=== PATIENT | female | born 1940 | race Caucasian/White ===

== ENCOUNTER 2021-01-15 17:54 | Emergency (ER) | payer MEDICARE, SELFPAY ==
--- NOTE | ~2021-01-15 | CT_ITS ---
CT elbow LT wo con DATE: 01/15/2021 19:54 INDICATION: Fall. Left upper extremity injury, pain Equivocal left forearm and left elbow radiographs with respect to possible subtle radial neck fractur e TECHNIQUE: Axial images were obtained through the elbow region. Examination is limited due to motion and patient inability to tolerate optimal positioning. COMPARISON: None FINDINGS: The examination is limited and nondiagnostic due to motion. IMPRESSION: Very subtle virtually nondisplaced radial neck fracture is not definitively confirmed or excluded. Clinical correlation is advised. Consider treating this as likely subtle nondisplaced radial neck fra cture and obtaining follow-up radiographs in one to 2 weeks. Reviewed, dictated and finalized at [facility]. Reviewed, dictated and finalized at location [facility]. IMPRESSION: Very subtle virtually nondisplaced radial neck fracture is not defi nitively confirmed or excluded. Clinical correlation is advised. Consider treating this as likely subtle nondis placed radial neck fracture and obtaining follow-up radiographs in one to 2 wee rosa.
--- NOTE | ~2021-01-15 | XR_ITS ---
XR elbow LT min 3V DATE: 01/15/2021 19:03 INDICATION: Fall. Pain. Suspected radial neck fracture on plain radiographic evaluation of the forear m TECHNIQUE: 4 views COMPARISON: None FINDINGS: Subtle recent or old radial neck fracture not definitively excluded. Consider CT evaluation of the left elbow. IMPRESSION: Cannot definitively exclude a subtle radial neck fracture of uncertain age including poss ible recent subtle nondisplaced fracture. Consider CT evaluation if radial neck fracture is clinicall y suspected. Reviewed, dictated and finalized at location [facility]. IMPRESSION: Cannot definitively exclude a subtle radial neck fracture of uncert ain age including possible recent subtle nondisplaced fracture. Consider CT lindsey luation if radial neck fracture is clinically suspected.
--- NOTE | ~2021-01-15 | XR_ITS ---
XR forearm LT 2V DATE: 01/15/2021 18:36 INDICATION: Fall. Left forearm and hand injury, pain TECHNIQUE: AP and lateral views COMPARISON: None FINDINGS: A subtle linear lucency at the radial neck is noted anteriorly, suggesting possible subtle nondisplaced radial neck fracture. Minimal 4 view left elbow radiographic examination is recommended. Diffuse osteopenia. No other fracture or dislocation is evident. Normal alignment at the elbow and wr ist joints. IMPRESSION: Subtle linear lucency at anterior neck of radius; recommend 4 view left elbow radiographi c evaluation to evaluate for any possible subtle nondisplaced radial neck fracture Reviewed, dictated and finalized at location [facility]. IMPRESSION: Subtle linear lucency at anterior neck of radius; recommend 4 view left elbow radiographic evaluation to evaluate for any possible subtle nondispl aced radial neck fracture
--- NOTE | ~2021-01-15 | XR_ITS ---
XR hand LT min 3V DATE: 01/15/2021 18:36 INDICATION: Fall. Left hand injury, pain TECHNIQUE: 4 views COMPARISON: None FINDINGS: Diffuse osteopenia. Age-indeterminate approximately 2.5 mm proximally displaced avulsion fracture of the dorsal base of t he middle phalanx of the fourth digit, most likely old. Clinical correlation for point tenderness at this site is recommended. No other fracture or dislocation, periosteal reaction or bone destruction is detected. Osteoarthritic changes are noted at the interphalangeal joints primarily. No erosive change. IMPRESSION: Age indeterminate avulsion fracture of the dorsal aspect of the base of the middle phalan x of the fourth digit, most likely old Osteopenia Osteoarthritis No fracture or dislocation is detected Reviewed, dictated and finalized at location [facility]. IMPRESSION: Age indeterminate avulsion fracture of the dorsal aspect of the bas e of the middle phalanx of the fourth digit, most likely old Osteopenia Osteoarthritis No fracture or dislocation is detected
[2021-01-15 18:10] VITALS: BP 161/92; PULSE 59; RESP 18; TEMP 36.6; O2SAT 100
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
[2021-01-15] MEDS: HYDROmorphone HCL INJ (*CRX) 2 MG/ML VIAL 0.5 MG IM (20:26)
[2021-01-15 21:00] VITALS: RESP 14; O2SAT 100
--- NOTE | 2021-01-15 21:01 | PC.NURSE ---
LONG ARM ULNAR GUTTER OCL PLACED ON LEFT ARM WITH SLING
== END 2021-01-15 21:00 | disposition home or self-care (01) ==
PROVIDERS: Emergency Provider Emergency Medicine
DX: S52.125A Nondisplaced fracture of head of left radius, initial encounter for closed fracture (principal); E78.5 Hyperlipidemia, unspecified; I10 Essential (primary) hypertension; E03.9 Hypothyroidism, unspecified; Z85.3 Personal history of malignant neoplasm of breast; Z96.641 Presence of right artificial hip joint; Z90.12 Acquired absence of left breast and nipple; V00.841A Fall from standing electric scooter, initial encounter; Y92.89 Other specified places as the place of occurrence of the external cause
CPT/HCPCS: 29105; 73080; 73090; 73130; 73200; 96372; 99283; 99284; J1170

== ENCOUNTER 2022-07-10 08:58 | Emergency (ER) | payer MEDICARE, SELFPAY ==
[2022-07-10] VITALS (92 sets, daily range): BP systolic 96–154; BP diastolic 53–123; PULSE 60–70; RESP 9–29; TEMP 36.1; O2SAT 89–99
--- NOTE | ~2022-07-10 | CT_ITS ---
EXAMINATION: CTA brain carotid DATE: 07/10/2022 10:07 INDICATION: Right hemiparesis. TECHNIQUE: Computed tomographic angiography (CTA) of the head was performed with 100 mL Omnipaque-350 intravenous contrast. CTA of the neck was performed with intravenous contrast. Automated exposure co ntrol and iterative reconstruction technique were employed. The dose-length product was 1118.81 mGy-c m. Maximum intensity projection and volume rendered 3D-reconstructions were created by the technologi st on a separate workstation. COMPARISON: Head CT 07/10/2022 FINDINGS: HEAD CTA: There are scattered areas of low attenuation in the cerebral white matter. There is an old infarct in left frontoparietal region. There is an infarct in right temporal region. There is a 9 mm dural calcification overlying left frontal lobe. There are infarcts involving the left thalamus, left basal ganglia, and anterior limb left internal capsule. There is no acute ischemic infarct. The vent ricles are normal in size. There are likely changes of ocular lens replacement surgeries. There is mi ld mucosal thickening in the paranasal sinuses. The mastoid air cells are normal. The vertebral arter ies are codominant. There is no significant stenosis of basilar artery or the posterior cerebral tony ally. There is no significant stenosis of the intracranial internal carotid arteries or anterior or m iddle cerebral arteries. Anterior communicating artery is normal. The posterior communicating arterie s are normal. There is no aneurysm. NECK CTA: There are moderate-sized right and small left pleural effusions. There are a few scattered nodules in the lungs measuring up to 1.9 cm in right upper lobe. There is mild mediastinal lymphadeno semaj. There is no significant stenosis of the vertebral arteries. There is mild plaque in the proxim al internal carotid arteries. There is 0% stenosis of the proximal right internal carotid artery rela tive to normal distal artery lumen diameter (NASCET criteria). There is 0% stenosis of the proximal l eft internal carotid artery relative to normal distal artery lumen diameter. There is severe cervical and thoracic spondylosis. IMPRESSION: 1. Age-indeterminate infarct in right temporal occipital region. 2. Age-indeterminate infarcts involving the left thalamus, left basal ganglia, and anterior limb left internal capsule. 3. Old infarct in left frontoparietal region. 4. Extensive nonspecific cerebral white matter disease, which likely represents chronic small vessel ischemic disease. 5. No aneurysm or significant intracranial arterial stenosis. 6. 0% stenosis of the proximal internal carotid arteries relative to normal distal artery lumen diame ters (NASCET criteria). 7. Pulmonary nodules suspicious for metastatic disease. 8. Moderate-sized right and small left pleural effusions. Reviewed, dictated and finalized at location [facility]. IMPRESSION: 1. Age-indeterminate infarct in right temporal occipital region. 2. Age-indeterminate infarcts involving the left thalamus, left basal ganglia, and anterior limb left internal capsule. 3. Old infarct in left frontoparietal region. 4. Extensive nonspecific cerebral white matter disease, which likely represents chronic small vessel ischemic disease. 5. No aneurysm or significant intracranial arterial stenosis. 6. 0% stenosis of the proximal internal carotid arteries relative to normal dis marita artery lumen diameters (NASCET criteria). 7. Pulmonary nodules suspicious for metastatic disease. 8. Moderate-sized right and small left pleural effusions.
--- NOTE | ~2022-07-10 | CT_ITS ---
EXAMINATION: CT brain wo con DATE: 07/10/2022 09:06 INDICATION: Right hemiparesis. TECHNIQUE: Computed tomography (CT) of the head was performed without intravenous contrast. The mA wa s adjusted according to patient size. Iterative reconstruction technique was employed. The dose-lengt h product was 605.33 mGy-cm. COMPARISON: None FINDINGS: There are scattered areas of low attenuation in the cerebral white matter. There is an old infarct in left frontoparietal region. There is an infarct in right temporal region. There is a 9 mm dural calcification overlying left frontal lobe. There are infarcts involving the left thalamus, left basal ganglia, and anterior limb left internal capsule. There is no acute ischemic infarct. The vent ricles are normal in size. There are likely changes of ocular lens replacement surgeries. There is mi ld mucosal thickening in the paranasal sinuses. The mastoid air cells are normal. IMPRESSION: 1. Age-indeterminate infarct in right temporal occipital region. 2. Age-indeterminate infarcts involving the left thalamus, left basal ganglia, and anterior limb left internal capsule. 3. Old infarct in left frontoparietal region. 4. Extensive nonspecific cerebral white matter disease, which likely represents chronic small vessel ischemic disease. 5. I discussed this case with Dr. Neves. Reviewed, dictated and finalized at location A.
--- NOTE | 2022-07-10 09:00 | ECG_ITS ---
Measurements Intervals [place] Rate: 60 P: AL: 0 QRS: 259 QRSD: 148 T: 38 QT: 468 QTc: 468 Interpretive Statements ELECTRONIC VENTRICULAR PACEMAKER UNDERLYING ATRIAL FLUTTER/TACHYCARDIA BASELINE ARTIFACT- I, III, AVL, V5 NO FURTHER INTERPRETATION IS POSSIBLE ABNORMAL ECG NO PREVIOUS ECG AVAILABLE FOR COMPARISON Electronically Signed On 07-10-2022 12:13:12 CDT by Misbah Carson D.O.
[2022-07-10 09:12] LABS: Glucose Point of Care 217 mg/dl (65-105)
--- NOTE | 2022-07-10 09:20 | PC.NURSE ---
call placed to [facility]
[2022-07-10 09:28] LABS: Basophils Absolute Auto 0.05 K/mm3 (0.00-0.10); Basophils Percent Auto 0.4 % (0.0-1.0); Eosinophils Absolute Auto 0.28 K/mm3 (0.02-0.50); Eosinophils Percent Auto 2.5 % (1.0-6.0); Hematocrit 42.8 % (35.0-42.0); Hemoglobin 13.7 g/dL (11.7-13.8); Immature Granulocyte Absolute 0.06 K/mm3 (0.00-0.00); Immature Granulocyte Percent A 0.5 % (0.0-0.0); Lymphocytes Absolute Auto 0.94 K/mm3 (1.10-4.50); Lymphocytes Percent Auto 8.3 % (18.0-42.0); Mean Corpuscular Hemoglobin 32.9 pg (27.0-31.0); Mean Corpuscular Volume 102.9 fL (78.0-102.0); Mean Platelet Volume 10.7 fl (9.2-11.8); Monocytes Absolute Auto 0.81 K/mm3 (0.10-0.90); Monocytes Percent Auto 7.2 % (2.0-11.0); Neutrophils Absolute Auto 9.2 K/mm3 (1.7-7.2); Neutrophils Percent Auto 81.1 % (50.0-70.0); Platelet Count Result 179 K/mm3 (150-420); Red Blood Count 4.16 M/mm3 (4.20-5.40); Red Cell Distribution Width 13.6 % (11.6-14.4); White Blood Count 11.3 K/mm3 (4.8-10.8)
--- NOTE | 2022-07-10 09:32 | ED.NEUROSD ---
HPI - Neuro Symptoms/Deficit General Chief Complaint: Suspected CVA Stated Complaint: ambulance Time Seen by Provider: 07/10/22 09:00 Source: patient, family, EMS and RN notes reviewed Mode of arrival: EMS Limitations: no limitations History of Present Illness HPI Narrative: At 0715 pt told family she had lost right upper and lower limb movement. Please see nurses' and EMS notes. Onset (ago): hour(s) (2) Timing confirmed by: family member Location: right arm and right leg History of same: No Severity: moderate Quality: weak, tingling and constant Relieving factors: none Exacerbating factors: none Context: sudden onset On Anticoagulants: Yes Associated symptoms: weakness Treatments Prior to Arrival: none Related Data Home Medications Medication Instructions Recorded Confirmed amlodipine 10 mg tablet 10 mg PO DAILY 01/15/21 07/10/22 atenolol 50 mg tablet 50 mg PO TID 01/15/21 07/10/22 atorvastatin 40 mg tablet 40 mg PO DAILY 01/15/21 07/10/22 dabigatran etexilate 75 mg capsule 75 mg PO DAILY 01/15/21 07/10/22 (Pradaxa) irbesartan 300 mg tablet 300 mg PO HS 01/15/21 07/10/22 levothyroxine 137 mcg tablet 137 mcg PO DAILY 01/15/21 07/10/22 (Synthroid) spironolactone 25 mg tablet 25 mg PO DAILY 01/15/21 07/10/22 memantine 10 mg tablet 10 mg PO DAILY 07/10/22 07/10/22 Allergies Allergy/AdvReac Type Severity Reaction Status Date / Time No Known Allergies Allergy Unverified 07/10/22 09:40 Review of Systems Review of Systems: All systems reviewed & are unremarkable except as noted in HPI and below Constitutional: Constitutional: Reports no additional constitutional complaints Eyes: Eyes: Reports no additional eye complaints ENT: Reports system reviewed and no additional complaints, except as documented Cardiovascular: Cardiovascular: Reports no additional cardiovascular complaints Respiratory: Respiratory: Reports no additional respiratory complaints Gastrointestinal: Gastrointestinal: Reports no additional gastrointestinal complaints Genitourinary: Genitourinary: Reports no additional female genitourinary complaints Musculoskeletal: Musculoskeletal: Reports no additional musculoskeletal complaints Integumentary/Breasts: Skin/Breast: Reports system reviewed and no additional complaints, except as docu Neurologic: Reports system reviewed and no additional complaints, except as documented Comments: right upper and lower limb weakness. right certified nurse aide was maintained 3/5. right knee minimal flexion 2/5. pt was unable to lift either limb. otherwise non-focal Psychiatric: Psychiatric: Reports no additional psychiatric complaints Endocrine: Endocrine: Reports no additional endocrine complaints Hematologic/Lymphatic: Hematologic/Lymphatic: Reports no additional hematologic/lymphatic complaints Allergic/Immunologic: Allergic/Immunologic: Reports no additional allergic/immunologic complaints PMFSH Past Medical History Medical History (Updated 07/11/22 @ 07:27 by Pepe Neves MD) Breast cancer CVA (cerebrovascular accident) Hyperlipidemia Hypertension Hypothyroidism Surgical History Surgical History (Updated 01/15/21 @ 18:17 by Timmy Wills MD) H/O mastectomy left History of hip replacement right Social History Social History (Updated 01/15/21 @ 18:17 by Timmy Wills MD) Smoking status: Never smoker Alcohol intake: never Substance use: never Exam Const: General: cooperative, comfortable, no acute distress, alert and awake Nutritional Appearance: well nourished and obese Orientation/consciousness: oriented to person and patient oriented x3 Limitations: no limitations Other: pt has memory deficits. HENMT: Head: normal to inspection Ears: external ears normal, TM's normal bilaterally and EAC's normal General nose exam: Normal external nose present and Normal nares present Face and sinus: normal facial exam and sinuses nontender Mouth: Yes Normal oral and pa
--- NOTE | 2022-07-10 09:33 | PC.NURSE ---
[facility] returned call, speaking with erp at this time.
[2022-07-10 09:43] LABS: Prothrombin Time 10.8 Seconds (9.50-12.10)
[2022-07-10 09:45] LABS: Alanine Aminotransferase 8 U/L (14-59); Albumin Level 3.2 g/dL (3.4-5.0); Alkaline Phosphatase 120 U/L (46-116); Anion Gap 9 mmol/L (8-16); Aspartate Amino Transferase 11 U/L (15-37); Bilirubin,Total 0.5 mg/dL (0.00-1.00); Blood Urea Nitrogen 35 mg/dL (7-18); Calcium 9.2 mg/dL (8.5-10.1); Carbon Dioxide 23 mmol/L (21-32); Chloride 105 mmol/L (98-108); Estimated Glomerular Filt Rate 20; Glucose 207 mg/dL (70-99); Osmolality Calculated 298 mOsm/kg (285-295); Potassium 4.1 mmol/L (3.5-5.1); Sodium 137 mmol/L (136-145); Total Protein 7.4 g/dL (6.4-8.2); Troponin I 12.6 ng/L (0.00-60.4)
[2022-07-10 09:46] LABS: Lactic Acid Reflex 0.9 mmol/L (0.4-2.0)
[2022-07-10] MEDS: SODIUM CHLORIDE 0.9% IV 500 ML 999 ML IV CONT (10:00)
[2022-07-10] MEDS: ASPIRIN 325 MG ENTERIC TABLET PO (10:02)
--- NOTE | 2022-07-10 10:25 | PC.NURSE ---
[facility] access line contacted to speak with neuro again following up on CTA report.
--- NOTE | 2022-07-10 11:29 | PC.NURSE ---
rn called [facility] again states they have paged neuro and will page again.
--- NOTE | 2022-07-10 11:56 | PC.NURSE ---
rn spoke with [facility] access line, rapid covid ordered, will call back with hospitalist.
--- NOTE | 2022-07-10 12:51 | PC.NURSE ---
patient is accepted to [facility]. waiting on room assignment
[2022-07-10 13:41] LABS: SARS-CoV-2 Ag Negative (Negative)
--- NOTE | 2022-07-10 18:01 | PC.NURSE ---
rn spoke with [facility] transfer center, they state that discharges are happening right now and should hear something in the next couple hours.
--- NOTE | 2022-07-10 20:30 | PC.NURSE ---
called [facility] transfer center for update, pt still in line
--- NOTE | 2022-07-10 22:36 | PC.NURSE ---
pt moved to room 1 for comfort
--- NOTE | 2022-07-10 22:55 | PC.NURSE ---
again called for update, no new information
[2022-07-11] VITALS (109 sets, daily range): BP systolic 114–152; BP diastolic 60–97; PULSE 60–90; RESP 12–30; TEMP 36.6; O2SAT 90–99
--- NOTE | 2022-07-11 06:59 | PC.NURSE ---
report to izzy andino
--- NOTE | 2022-07-11 07:44 | ED.NEUROSD ---
HPI - Neuro Symptoms/Deficit General Chief Complaint: Suspected CVA Stated Complaint: ambulance Time Seen by Provider: 07/10/22 09:00 Source: patient, family, EMS and RN notes reviewed Mode of arrival: EMS Limitations: no limitations History of Present Illness Location: right arm and right leg History of same: No Severity: moderate Quality: weak, tingling and constant Relieving factors: none Exacerbating factors: none On Anticoagulants: Yes Treatments Prior to Arrival: none Related Data Home Medications Medication Instructions Recorded Confirmed amlodipine 10 mg tablet 10 mg PO DAILY 01/15/21 07/10/22 atenolol 50 mg tablet 50 mg PO TID 01/15/21 07/10/22 atorvastatin 40 mg tablet 40 mg PO DAILY 01/15/21 07/10/22 dabigatran etexilate 75 mg capsule 75 mg PO DAILY 01/15/21 07/10/22 (Pradaxa) irbesartan 300 mg tablet 300 mg PO HS 01/15/21 07/10/22 levothyroxine 137 mcg tablet 137 mcg PO DAILY 01/15/21 07/10/22 (Synthroid) spironolactone 25 mg tablet 25 mg PO DAILY 01/15/21 07/10/22 memantine 10 mg tablet 10 mg PO DAILY 07/10/22 07/10/22 Allergies Allergy/AdvReac Type Severity Reaction Status Date / Time No Known Allergies Allergy Unverified 07/10/22 09:40 [facility] Past Medical History Medical History (Updated 07/11/22 @ 07:27 by Pepe Neves MD) Breast cancer CVA (cerebrovascular accident) Hyperlipidemia Hypertension Hypothyroidism Surgical History Surgical History (Updated 01/15/21 @ 18:17 by Timmy Wills MD) H/O mastectomy left History of hip replacement right Social History Social History (Updated 01/15/21 @ 18:17 by Timmy Wills MD) Smoking status: Never smoker Alcohol intake: never Substance use: never Course Vital Signs Vital signs: Vital Signs Blood Pressure 148/82 H 07/10/22 08:58 Pulse Oximetry 92 07/10/22 08:58 Temperature 36.1 C L 07/10/22 09:28 Pulse Rate 60 07/11/22 06:30 Respiratory Rate 11 L 07/10/22 13:02 Blood Pressure 146/73 H 07/11/22 05:14 Pulse Oximetry 94 07/10/22 22:45 Oxygen Delivery Room Air 07/10/22 09:28 MDM - Neuro Symptoms/Deficit Lab Data Result diagrams: 07/10/22 09:00 07/10/22 09:00 Labs: Lab Results 07/10/22 07/10/22 07/10/22 Range/Units 09:00 09:00 09:00 WBC 11.3 H (4.8-10.8) K/mm3 RBC 4.16 L (4.20-5.40) M/mm3 Hgb 13.7 (11.7-13.8) g/dL Hct 42.8 H (35.0-42.0) % MCV 102.9 H (78.0-102.0) fL MCH 32.9 H (27.0-31.0) pg MCHC 32.0 (32.0-36.0) g/dL RDW 13.6 (11.6-14.4) % Plt Count 179 (150-420) K/mm3 MPV 10.7 (9.2-11.8) fl Immature Gran % (Auto) 0.5 H (0.0-0.0) % Neut % (Auto) 81.1 H (50.0-70.0) % Lymph % (Auto) 8.3 L (18.0-42.0) % [place] % (Auto) 7.2 (2.0-11.0) % Eos % (Auto) 2.5 (1.0-6.0) % Baso % (Auto) 0.4 (0.0-1.0) % Lymph # (Auto) 0.94 L (1.10-4.50) K/mm3 [place] # (Auto) 0.81 (0.10-0.90) K/mm3 Eos # (Auto) 0.28 (0.02-0.50) K/mm3 Baso # (Auto) 0.05 (0.00-0.10) K/mm3 Abs Immat Gran (auto) 0.06 H (0.00-0.00) K/mm3 Absolute Neuts (auto) 9.2 H (1.7-7.2) K/mm3 Absolute Nucleated RBC 0.00 (0.00-0.00) K/mm3 Nucleated RBC % 0.0 (0-0.0) % PT (9.50-12.10) Seconds INR APTT (23.90-30.70) SEC Sodium 137 (136-145) mmol/L Potassium 4.1 (3.5-5.1) mmol/L Chloride 105 (98-108) mmol/L Carbon Dioxide 23 (21-32) mmol/L Anion Gap 9 (8-16) mmol/L BUN 35 H (7-18) mg/dL Creatinine 2.31 H (0.55-1.02) mg/dL Estim Creat Clear Calc Not Reportable Estimated GFR 20 L (59 - ) Glucose 207 H (70-99) mg/dL POC Capillary Glucose (65-105) mg/dl Calculated Osmolality 298 H (285-295) mOsm/kg Lactic Acid 0.9 (0.4-2.0) mmol/L Calcium 9.2 (8.5-10.1) mg/dL Total Bilirubin 0.5 (0.00-1.00) mg/dL AST 11 L (15-37) U/L ALT 8 L (14-59) U/L Alkaline Phosphatase 120 H (46-116) U/L Troponin
[2022-07-11 07:45] LABS: Glucose Point of Care 164 mg/dl (65-105)
--- NOTE | 2022-07-11 07:55 | PC.NURSE ---
pt awake, conversing appropriately, pleasant and cooperative. Oriented to self, place, and year - not to month. Full linen change, incontinent of urine, repositioned. No complaints or distress, VSS. Awaiting morning medications to arrive from pharmacy. Blood sugar stable, call portillo within reach.
[2022-07-11] MEDS: ASPIRIN 81 MG ENTERIC TABLET PO (08:23)
[2022-07-11] MEDS: atenoloL 50 MG TABLET PO (08:24)
[2022-07-11] MEDS: LEVOTHYROXINE SODIUM 112 MCG, LEVOTHYROXINE SODIUM 25 MCG 137 MCG PO (08:25)
--- NOTE | 2022-07-11 08:27 | PC.NURSE ---
[address] [facility] LINE CALLS FOR UPDATE STATUS. [facility] HAS NO BEDS AVAILABLE AT THIS TIME, CURRENTLY HAS PTS IN ED AWAITING ADMISSION. [facility] REPORTS AWAITING DC, UNSURE IF PT WILL GET A BED DURING DAY SHIFT. ERP AWARE. [facility] [employer] MA[employer]GER DAMEON NOTIFIED FOR NEUROLOGY CONSULT AT THIS TIME. DR ROMERO TO RETURN CALL.
[2022-07-11] MEDS: MEMANTINE 5 MG TABLET 10 MG PO (08:34)
--- NOTE | 2022-07-11 08:52 | PC.NURSE ---
Called daughter in law, Suma, gave update on the patient. Currently attempting to get a bed at [facility], daughter in law aware and agreeable with plan of care.
--- NOTE | 2022-07-11 09:10 | PC.NURSE ---
DAMEON FROM [facility] CALLED, IS UNABLE TO REACH DR ROMERO AT THIS TIME, STATES SHE IS CONTINUING TO ATTEMPT CONTACT. PILLOW PLACED UNDER PT RT LEG FOR COMFORT.
--- NOTE | 2022-07-11 09:38 | PC.NURSE ---
Pt eating breakfast independently using left hand, no needs at this time.
--- NOTE | 2022-07-11 09:39 | PC.NURSE ---
0935 DR ROMERO RETURNED CALL AT 0920, ACCEPTED PT FOR TRANSFER TO [facility]. AWAITING RETURN CALL FROM DR CALIX AT THIS TIME. CORPORATE DEVELOPMENT ANALYST HAS PAGED HIM. WILL CONTINUE TO MONITOR.
--- NOTE | 2022-07-11 10:11 | PC.NURSE ---
DR CALIX HAS ACCEPTED PT, [employer] [facility] HE[employer] MANAGER REPORTS NO IMU BEDS AT THIS TIME. TO AWAIT DC FOR ROOM ASSIGNMENT.
--- NOTE | 2022-07-11 10:39 | PC.NURSE ---
Call received from Vamp Cut Out Worker at [place]. States she has spoke to accepting physician, Dr [facility], who confirmed he would like to admit this patient as IMU status. Currently working on getting a bed in [facility]'s IMU, no beds at this time.
--- NOTE | 2022-07-11 11:45 | PC.NURSE ---
Call received from Cable Lacer at [place], no IMU beds at this time. Will call when bed is available.
--- NOTE | 2022-07-11 14:09 | PC.NURSE ---
Spoke with daughter, confirmed past medical and home medications. No bed at this time, will call with update.
--- NOTE | 2022-07-11 15:30 | PC.NURSE ---
Pt transferred from Trauma stretcher to regular hospital bed for comfort, repositioned.
--- NOTE | 2022-07-11 16:12 | PC.NURSE ---
Received a call from [place] Suma Garcia, at [facility] ([phone]). States patient does have a bed (room 1408), accepting physician Dr Flynn. Called material handling warehouse supervisor at [facility] for update. States there are not any IMU beds at [place] at this time, patient is still on their radar for a bed, continually attempting placement. Called and spoke with patient's son and daughter in law. Informed there is a bed at [facility], bed at [facility] is not guaranteed at this time. Pt is currently stable, both facilities have services this patient needs. Transferred call into patient room so patient, son, and daughter in law could discuss options. Per son and daughter in law, all are in agreement to wait on bed at [facility], [place] at [place]. OK to cancel bed at [facility]. Aware there is not a guarantee for a bed at [facility]. Called Suma back at [facility] to cancel room 1408 for patient. Called material handling warehouse supervisor at [facility] to inform of family decision to wait on IMU bed at [facility], please continue to search for bed placement.
--- NOTE | 2022-07-11 18:10 | PC.NURSE ---
Right arm continues to be flaccid. Arm sling applied for comfort at the request of family at bedside.
--- NOTE | 2022-07-11 20:59 | PC.NURSE ---
Called house sup at [facility] for bed update, she stated ER took last 3 beds but she was still working on it
--- NOTE | 2022-07-11 22:03 | PC.NURSE ---
[facility] w[facility] sup called and states no imu bed will be available bunny darling
[2022-07-12] VITALS (73 sets, daily range): BP systolic 113–142; BP diastolic 59–77; PULSE 60–73; RESP 12–31; TEMP 36.1–36.2; O2SAT 90–99
--- NOTE | 2022-07-12 06:59 | PC.NURSE ---
Report to Madonna RAMOS
--- NOTE | 2022-07-12 07:30 | PC.NURSE ---
Full linen change, incontinent of urine. Brushed teeth, brushed hair. ordered breakfast. pt stable, pleasant and cooperative this morning. Call light within reach.
--- NOTE | 2022-07-12 07:41 | PC.NURSE ---
Sp[facility] with house [facility] at [facility]. States patient is still slotted for IMU bed at this time, continuing to attempt bed placement.
--- NOTE | 2022-07-12 08:06 | PC.NURSE ---
Called pharmacy for AM meds
[2022-07-12] MEDS: LEVOTHYROXINE SODIUM 112 MCG, LEVOTHYROXINE SODIUM 25 MCG 137 MCG PO (08:23)
[2022-07-12] MEDS: DABIGATRAN ETEXILATE 75 MG CAPSULE PO (08:24)
[2022-07-12] MEDS: MEMANTINE 5 MG TABLET 10 MG PO (08:24)
[2022-07-12] MEDS: ATORVASTATIN 40 MG TABLET PO (08:25)
--- NOTE | 2022-07-12 09:08 | PC.NURSE ---
Spoke with son, Kyle, gave update on patient this morning. Aware we are still looking for a bed.
--- NOTE | 2022-07-12 10:52 | PC.NURSE ---
Spoke with house parent, Divine, at [place] again. Patient is stable, improvement in stroke scale today. Asking if patient could be downgraded to med/surg tele as IMU beds are still not available. cage/vault supervisor to speak with accepting physician.
[2022-07-12] MEDS: EMPAGLIFLOZIN 10 MG TABLET 25 MG PO (11:05)
[2022-07-12 11:06] LABS: Glucose Point of Care 281 mg/dl (65-105)
--- NOTE | 2022-07-12 11:12 | PC.NURSE ---
Bedside glucose 281. pt restarted on Farxiga substitute per pharmacy. 25 mg Jardiance administered. Pt repositioned, remains pleasant, cooperative, stable. no complaints of pain. Stroke scale improved since yesterday.
--- NOTE | 2022-07-12 11:21 | PC.NURSE ---
Case management at bedside with patient.
--- NOTE | 2022-07-12 11:35 | PCCCNOTE ---
Spoke to pt about the plan to transfer her to [place], still waiting on a bed. Encouraged her and let her know feeling down and to cry was okay and normal with a health change that has happened to her. She did tear up during conversation at times. Informed her the importance of seeing neurology and cardiology and then starting therapy to try and regain function of her right arm and leg. She lives at home alone with her dog. Her step-son lives near by, he is disabled but is a help to her. She had been driving prior to this stroke. She has a stair lift at home and did help cleaning her home. Discussed rehab options including [facility] and our swing bed program.
--- NOTE | 2022-07-12 11:59 | PC.NURSE ---
Patient's high school guidance counselor at bedside visiting with patient.
--- NOTE | 2022-07-12 12:17 | PC.NURSE ---
Spoke with NAJMA Boggs, at [facility]. Gave update on patient. Flakita approved medsurg with tele, will alert housekeeping lead.
--- NOTE | 2022-07-12 12:19 | PC.NURSE ---
Received call from house manager at [facility]. pt approved for downgrade to med/surg tele. WILL have a bed today, okay to inform family. Currently working on bed placement.
--- NOTE | 2022-07-12 12:44 | PC.NURSE ---
Called son with update, patient will have bed at [facility] today.
--- NOTE | 2022-07-12 14:12 | PC.NURSE ---
Pt has bed at [facility], room 254. MALICK Moise aware, verbal consent obtained for transfer. [facility] paged at this time.
--- NOTE | 2022-07-12 14:52 | PC.NURSE ---
Spoke with MALICK Moise. Aware patient is with EMS on her way to [facility]
--- NOTE | 2022-07-12 14:55 | PC.NURSE ---
Spoke with Danyell, receiving RN at [facility]. Aware patient did NOT receive her aspirin dose, aware of sling use for right arm for comfort at the request of family. Danyell aware patient is currently with EMS on her way to [place].
== END 2022-07-12 14:50 | disposition short-term general hospital (02) ==
PROVIDERS: Emergency Medicine; Emergency Provider Emergency Medicine; PCP Internal Medicine
DX: I63.9 Cerebral infarction, unspecified (principal); Z20.822 Contact with and (suspected) exposure to COVID-19; E78.5 Hyperlipidemia, unspecified; I10 Essential (primary) hypertension; E03.9 Hypothyroidism, unspecified; Z85.3 Personal history of malignant neoplasm of breast
CPT/HCPCS: 36415; 70450; 70496; 70498; 80053; 82948; 83605; 84484; 85025; 85610; 85730; 87426; 93005; 96360; 99285; A4565; A9270; C9803; J7040; Q9967

== ENCOUNTER 2022-07-12 15:30 | Inpatient (IN) | payer MEDICARE, SELFPAY ==
--- NOTE | ~2022-07-12 | XR_ITS ---
EXAMINATION: [id number] DATE: 07/14/2022 10:22 INDICATION: Right pleural effusion status post thoracentesis. TECHNIQUE: Frontal and lateral views of the chest were obtained. COMPARISON: Chest CT 07/13/2022 FINDINGS: There are scattered nodules in the lungs. There is mild atelectasis in left lower lung zone . There is a small right pleural effusion. No pneumothorax. The heart size is normal. There is a left chest pacer with leads in right atrium, right ventricle, and coronary sinus. Surgical clips overlie the abdomen. IMPRESSION: 1. Small right pleural effusion with improvement status post thoracentesis. 2. Mild atelectasis in left lower lung zone. 3. Pulmonary nodules, consistent with metastatic disease. Reviewed, dictated and finalized at location A.
--- NOTE | ~2022-07-12 | US_ITS ---
EXAMINATION: US carotid duplex BI DATE: 07/13/2022 10:19 INDICATION: Stroke with right-sided hemiparesis. TECHNIQUE: Grayscale, color Doppler, and pulsed Doppler images of the cervical carotid arteries were obtained. The degree of vessel stenosis is placed in one of the following categories: normal, <50%, 5 0-69%, >=70% but less than near-occlusion, near-occlusion, or total occlusion. Note that percent sten osis relative to normal distal artery lumen diameter is indirectly measured from velocity measurement s as described by Kaden, et al. Radiology 2003; 229:340-346. COMPARISON: None. FINDINGS: RIGHT: The right common carotid artery (CCA) peak systolic velocity (PSV) is 47 cm/s. The right internal car otid artery (ICA) PSV is 44 cm/s. The right ICA end-diastolic velocity (EDV) is 9 cm/s. The right ICA /CCA PSV ratio is 0.9. Grayscale and color Doppler images yield an estimate of <50% diameter reductio n from minimal plaque in the ICA. The external carotid artery (ECA) PSV is 71 cm/s. There is antegrad e flow in the right vertebral artery. LEFT: The left CCA PSV is 53 cm/s. The left ICA PSV is 51 cm/s. The left ICA EDV is 13 cm/s. The left ICA/C CA PSV ratio is 1.0. Grayscale and color Doppler images yield an estimate of <50% diameter reduction from minimal plaque in the ICA. The ECA PSV is 53 cm/s. There is antegrade flow in the left vertebral artery. IMPRESSION: 1. <50% stenosis from minimal plaque in the right internal carotid artery. 2. <50% stenosis from minimal plaque in the left internal carotid artery. Reviewed, dictated and finalized at location A.
--- NOTE | ~2022-07-12 | US_ITS ---
EXAMINATION: US thoracentesis DATE: 07/14/2022 10:56 INDICATION: Right pleural effusion. TECHNIQUE: The procedure and its risks, benefits, and alternatives were discussed with the patient an griffin Suma Sands. Potential risks discussed included bleeding, infection, and pneumothorax. The patient and Suma Sands understood the risks and agreed to proceed. The skin was prepped and draped in steril e fashion. 1% lidocaine was used for local anesthesia. Under ultrasound guidance, a 5 Fr catheter wit trochar was advanced into the right pleural effusion. Fluid was aspirated. The catheter was removed , and a dressing was applied. There were no immediate complications. FINDINGS: Ultrasound images demonstrate a right pleural effusion and the catheter within the fluid. IMPRESSION: 1. Successful ultrasound-guided thoracentesis yielding 650 mL of clear, sheldon-colored fluid. Reviewed, dictated and finalized at location A. IMPRESSION: 1. Successful ultrasound-guided thoracentesis yielding 650 mL of clear, sheldon- colored fluid.
--- NOTE | ~2022-07-12 | US_ITS ---
EXAMINATION: US retroperitoneal duplex ltd DATE: 07/13/2022 10:20 INDICATION: Chronic renal failure TECHNIQUE: Multiple grayscale, color Doppler, and pulsed Doppler images of the kidneys and renal tony ally were obtained. COMPARISON: None. FINDINGS: The right kidney measures 9.1 x 4.4 x 5.5 cm and the left 10.8 x 5.0 x 5.6 cm. There is bilateral inc reased renal cortical echogenicity which can be seen with medical renal disease. 1.4 cm anechoic left renal cyst. There is no hydronephrosis. The aorta peak systolic velocity is 70 cm/s. The right evan al artery peak systolic velocity is 76 cm/s in the proximal segment, 83 cm/s in the mid segment, and 72 cm/s in the distal segment. The left renal artery peak systolic velocity is 78 cm/s in the proxima l segment, 54 cm/s in the mid segment, and 72 cm/s in the distal segment. IMPRESSION: 1. No hydroureteronephrosis or Doppler evidence of renal artery stenosis. 2. Bilateral increased renal cortical echogenicity which can be seen with medical renal disease. Reviewed, dictated and finalized at location A. IMPRESSION: 1. No hydroureteronephrosis or Doppler evidence of renal artery stenosis. 2. Bilateral increased renal cortical echogenicity which can be seen with medic al renal disease.
--- NOTE | ~2022-07-12 | US_ITS ---
US renal BI 07/17/2022 09:45 Procedure: Realtime transabdominal ultrasound of the kidneys and bladder. Indication: Elevated creatinine Comparison: No prior studies for comparison. Findings: Renal echotexture is normal bilaterally without hydronephrosis, contour deforming mass or r enal calculus. The right kidney measures 8.7 cm and left kidney measures 8.3 cm. Bladder within norm al limits. Impression: 1: Unremarkable renal ultrasound. No stones, masses or hydronephrosis. Reviewed, dictated and finalized at location A. Impression: 1: Unremarkable renal ultrasound. No stones, masses or hydronephrosis.
--- NOTE | ~2022-07-12 | US_ITS ---
EXAMINATION:US venous doppler LE BI INDICATION:Leg edema TECHNIQUE: Multiple grayscale, color flow and Doppler images of the right and left lower extremity de ep venous systems were obtained and reviewed. COMPARISON:No prior studies for comparison. FINDINGS: The common femoral, superficial femoral and popliteal veins demonstrate normal respiratory variation, augmentation and compressibility. Color flow is also seen within the posterior tibial, pe roneal, greater saphenous and profunda veins. IMPRESSION: 1: No lower extremity deep venous thrombosis. Reviewed, dictated and finalized at location A.
--- NOTE | ~2022-07-12 | CT_ITS ---
EXAMINATION: CT chest abdomen pelvis wo con DATE: 07/13/2022 09:23 INDICATION: Breast cancer. TECHNIQUE: Computed tomography (CT) of the chest, abdomen, and pelvis was performed without intraveno us contrast. Automated exposure control and iterative reconstruction technique were employed. The dos e-length product was 752.31 mGy-cm. COMPARISON: None FINDINGS: CHEST CT: There is a moderate-sized right pleural effusion. The lungs demonstrate smooth septal thickening, con sistent mild pulmonary edema. There are at least 5 scattered nodules in the lungs measuring up to 2.0 cm in left lower lobe. Cardiomegaly is noted. There are coronary artery calcifications. No pericardi al effusion. There is a left chest pacer with leads in right atrium, right ventricle, and coronary si nus. There are changes of right mastectomy. There is scarring in right chest with 0.2 x 1.9 x 4.3 cm thick-walled fluid collection. There is severe thoracic spondylosis. There are bridging endplate oste ophytes at multiple levels in the spine, consistent with diffuse idiopathic skeletal hyperostosis (DI SH). ABDOMEN/PELVIS CT: The liver, spleen, pancreas, and right adrenal gland are normal. There is a 15 mm mass in left adrena l gland measuring low-attenuation, consistent with an adenoma. There are cysts in right kidney measur ing up to 19 mm. There is cortical thinning of the kidneys. Stool distends the rectum. There is diver ticulosis of the colon without evidence of diverticulitis. The appendix is normal. There are no patho logically enlarged lymph nodes. There is no free intraperitoneal fluid. There is a right hip arthropl asty. There is severe lumbar spondylosis. IMPRESSION: 1. Pulmonary nodules, consistent metastatic disease. 2. Mild pulmonary edema. 3. Moderate-sized right pleural effusion. 4. Right-sided mastectomy with thin, thick-walled fluid collection in the area of prior surgery, whic h may be a seroma. Abscess cannot be excluded. Reviewed, dictated and finalized at location A. IMPRESSION: 1. Pulmonary nodules, consistent metastatic disease. 2. Mild pulmonary edema. 3. Moderate-sized right pleural effusion. 4. Right-sided mastectomy with thin, thick-walled fluid collection in the area of prior surgery, which may be a seroma. Abscess cannot be excluded.
[2022-07-12 16:13] VITALS: BMI 29.2
[2022-07-12 16:18] VITALS: PULSE 60
--- NOTE | 2022-07-12 16:21 | ADMGEN ---
This patient, Clemencia Sands, was admitted to Medical Room 254-01. Patient/family oriented to hospital policies and general routines including ID bracelet, bed and alarms, visiting hours, pain management, procedures, bathroom and other care routines, personal items, smoking policy, room service/diet, and visiting hours. Information on how to activate the Rapid Response Team has been discussed. Patient/Family are encouraged to report perceived risks to care and to ask questions if they do not understand what they are told or what they should do.
--- NOTE | 2022-07-12 16:46 | ECG_ITS ---
Measurements Intervals [place] Rate: 60 P: ID: 0 QRS: 251 QRSD: 161 T: -33 QT: 493 QTc: 493 Interpretive Statements ELECTRONIC VENTRICULAR PACEMAKER UNDERLYING ATRIAL FLUTTER/TACHYCARDIA BASELINE ARTIFACT- I, II, III, AVL, AVF, V1-V6 NO FURTHER INTERPRETATION IS POSSIBLE ABNORMAL ECG COMPARED TO ECG 07/10/2022 09:05:21 NO SIGNIFICANT CHANGES Electronically Signed On 07-12-2022 21:32:40 CDT by Misbah Carson D.O.
[2022-07-12 16:47] VITALS: BP 135/67; PULSE 60; RESP 22; TEMP 36.6; O2SAT 95
[2022-07-12 17:40] LABS: Lactic Acid Reflex 0.9 mmol/L (0.7-2.0)
[2022-07-12 17:44] LABS: Anion Gap 10 mmol/L (8-16); Blood Urea Nitrogen 33 mg/dL (7-17); Calcium 9.1 mg/dL (8.4-10.2); Carbon Dioxide 20 mmol/L (22-30); Chloride 108 mmol/L (98-107); Estimated CRCL calculation 22 ml/min; Estimated Glomerular Filt Rate 25; Glucose 236 mg/dL (65-110); Phosphorus 4.5 mg/dL (2.5-4.5); Potassium 4.2 mmol/L (3.4-5.0); Sodium 138 mmol/L (137-145)
[2022-07-12 17:58] LABS: Glucose Point of Care 230 mg/dl (65-105)
[2022-07-12] MEDS: ACETAMINOPHEN 325 MG TABLET 650 MG PO (18:38)
[2022-07-12 20:00] VITALS: PULSE 60
--- NOTE | 2022-07-12 20:23 | PM.IMHP ---
H&P: HPI History of Present Illness Date/Time: 07/12/22 20:23 Chief Complaint: Stroke-like symptoms Narrative: This is an 82-year-old female patient who was a direct admit from [facility]. The patient has had previous CVAs. She stated that she lost use of her right upper and lower extremity this was noted on the when she came into the emergency room at [facility]. The patient has a history of atrial fib/a flutter it is on anticoagulation and was not a candidate for tPA. Also the patient's symptoms started 12 hours prior to her coming to the emergency room. Head and neck CTA was read as the following 1. Age-indeterminate infarct in right temporal occipital region. 2. Age-indeterminate infarcts involving the left thalamus, left basal ganglia, and anterior limb left internal capsule. 3. Old infarct in left frontoparietal region. 4. Extensive nonspecific cerebral white matter disease, which likely represents chronic small vessel ischemic disease. 5. No aneurysm or significant intracranial arterial stenosis. 6. 0% stenosis of the proximal internal carotid arteries relative to normal distal artery lumen diameters (NASCET criteria). 7. Pulmonary nodules suspicious for metastatic disease. 8. Moderate-sized right and small left pleural effusions. The patient is unable to receive an MRI due to a pacemaker. The patient has been on Pradaxa for her AFib a flutter. I repeated an EKG here and she shows the paced beats with underlying atrial flutter with 4-1. The patient has a history of dementia and has a poor short-term memory. Her son and [id number] are at the bedside answering questions for me. The patient is unable to move the right leg for me and is not able to lift her right arm up but can grab my hand with her fingers and wiggle her fingers without difficulty. The patient's speech is clear. She can shrug the left shoulder but not the right shoulder. Her NIH SS score is a 10. Her blood sugars have been anywhere from 164-230. Her hemoglobin A1c is now 8.0. Her BUN is 33 with a creatinine 1.9.is being admitted to observation status on the date of service of 07/12/2022. Review of Systems Review of Systems: See HPI All systems reviewed & are unremarkable except as noted in HPI and below Constitutional: Constitutional: Reports as per HPI and Reports no additional constitutional complaints Eyes: Eyes: Reports as per HPI and Reports no additional eye complaints ENT: Reports system reviewed and no additional complaints, except as documented and Reports Normal hearing present Cardiovascular: Cardiovascular: Reports no additional cardiovascular complaints Respiratory: Respiratory: Reports no additional respiratory complaints and Reports no additional respiratory complaints Gastrointestinal: Gastrointestinal: Reports as per HPI and Reports no additional gastrointestinal complaints Musculoskeletal: Musculoskeletal: Reports no additional musculoskeletal complaints Integumentary/Breasts: Skin/Breast: Reports system reviewed and no additional complaints, except as docu and Reports as per HPI Neurologic: Reports system reviewed and no additional complaints, except as documented, Reports as per HPI and Reports Normal hearing present Psychiatric: Psychiatric: Reports no additional psychiatric complaints and Reports as per HPI Endocrine: Endocrine: Reports no additional endocrine complaints Hematologic/Lymphatic: Hematologic/Lymphatic: Reports no additional hematologic/lymphatic complaints Allergic/Immunologic: Allergic/Immunologic: Reports no additional allergic/immunologic complaints [facility] Past Medical History Medical History (Updated 07/12/22 @ 20:44 by Flakita Mason NP) Atrial fibrillation and flutter Breast cancer Chronic kidney disease CVA (cerebrovascular accident) Dementia DM2 (diabetes mellitus, type 2) Hyperlipidemia Hypertension Hypothyroidism Pacemaker Surgical History Surgical History (Reviewed 0
[2022-07-12 21:44] LABS: Glucose Point of Care 249 mg/dl (65-105)
[2022-07-12] MEDS: IRBESARTAN 150 MG TABLET 300 MG PO (22:11)
[2022-07-12 22:45] VITALS: BP 129/68; PULSE 60; RESP 20; TEMP 36.1; O2SAT 98
[2022-07-13] VITALS (11 sets, daily range): BP systolic 118–125; BP diastolic 66–71; PULSE 59–68; RESP 18; TEMP 36.1–36.7; O2SAT 95–97
--- NOTE | 2022-07-13 | ECHO_ITS ---
Patient Info Name: Clemencia Sands Age: 82 years : 1940 Gender: Female Ht: 66 in Wt: 181 lbs BSA: 1.98 m2 HR: 60 bpm BP: 129 / 68 mmHg Technical Quality: Fair Exam Date: 07/13/2022 10:55 AM Exam Location: [facility] Patient Status: Inpatient Admit Date: 07/13/2022 Staff Ordering Physician: Flakita Mason NP Threading Machine Operator: Melody Mayer RDCS Attending Provider: Nathaniel [facility] MD Referring Physician: Isabella ANGEL; Exam Type: CA echo doppler w bubble study Study Info Indications - CVA Complete two-dimensional, color flow and Doppler transthoracic echocardiogram is performed with agitated saline. Contrast/Agitated Saline Contrast/Ag. Saline: Agitated Saline Amount: 20.00 ml Administered By: Bia Bertrand RDCS New IV Access: Left and Antecubital Space Site Condition: No extravasation Summary 1. Left ventricular chamber dimension is normal. 2. Left ventricular systolic function is normal, estimated at 60-65%. 3. The left ventricular diastolic function is abnormal. 4. E/e' 13 is mildly elevated. 5. Left atrial chamber dimension is mildly enlarged. 6. The mitral valve has moderately calcified annulus. 7. No pulmonary hypertension, estimated pulmonary arterial systolic pressure is 38 mmHg. 8. There is trace pulmonic regurgitation. Left Ventricle E/e' 13 is mildly elevated. Left ventricular chamber dimension is normal. Left ventricular systolic function is normal, estimated at 60-65%. The left ventricular diastolic function is abnormal. Right Ventricle Right ventricular chamber dimension is normal. Right ventricular systolic function is normal. Left Atria Left atrial chamber dimension is mildly enlarged. Right Atria Right atrial chamber dimension is normal. Atrial Septum Agitated saline injection with and without valsalva maneuver opacified right sided cardiac chambers without shunt to left sided cardiac chambers. Intact interatrial septum visualized by 2D and agitated saline imaging. Aortic Valve The aortic valve is trileaflet. There is no aortic valve stenosis. There is no aortic valve regurgitation. Pulmonic Valve There is trace pulmonic regurgitation. Mitral Valve The mitral valve has moderately calcified annulus. There is no mitral valve stenosis. There is no mitral valve regurgitation. Tricuspid Valve There is no tricuspid valve regurgitation. No pulmonary hypertension, estimated pulmonary arterial systolic pressure is 38 mmHg. Pericardium/Pleural There is no pericardial effusion. Inferior Vena Cava Normal inferior vena cava with >50% collapse upon inspiration consistent with normal right atrial pressure, 5 mmHg. Aorta The aortic root size at the sinus of Valsalva is normal. Left Ventricular Outflow Tract Name Value Normal LVOT 2D LVOT Diameter 1.9 cm LVOT Doppler LVOT Peak Gradient 2 mmHg LVOT Mean Gradient 1 mmHg LVOT VTI 15 cm LVOT VTI/AV VTI Ratio 0.8
[2022-07-13 03:34] LABS: Appearance Urine Clear (Clear); Bilirubin Urine Negative (Negative); Blood Urine 1+ (Negative); Color Urine Yellow (Yellow); Glucose Urine UA 2+ mg/dL (Negative); Ketones Urine Negative (Negative); Leukocyte Esterase Ur Negative LEU/UL (Negative); Nitrate Urine Negative (Negative); Protein Urine Negative (Negative); Urobilinogen Urine 0.2 mg/dL (<2.0); pH Urine 6.5 (5.0-9.0)
[2022-07-13 03:44] LABS: Add Urine Microscopic? YES; RBC Urine 21-50 /hpf (0-2); Squamous Epithelial Cell Urine Moderate /hpf (Few)
[2022-07-13] MEDS: LEVOTHYROXINE SODIUM 25 MCG TABLET PO (05:26)
[2022-07-13] MEDS: LEVOTHYROXINE SODIUM 112 MCG TABLET PO (05:26)
[2022-07-13 06:10] LABS: Basophils Percent Auto 0.3 % (0.2-1.2); Eosinophils Absolute Auto 0.2 K/mm3 (0-0.3); Eosinophils Percent Auto 2.6 % (0-4.4); Hematocrit 42.3 % (37.0-47.0); Hemoglobin 13.5 g/dL (12.0-15.0); Immature Granulocyte Absolute 0.03 K/mm3 (0.00-0.031); Immature Granulocyte Percent A 0.3 % (0-0.5); Lymphocytes Absolute Auto 1.09 K/mm3 (0.9-3.2); Lymphocytes Percent Auto 12.1 % (18.3-44.2); Mean Corpuscular HGB Conc 31.9 g/dl (32-36); Mean Corpuscular Hemoglobin 31.9 pg (26-34); Monocytes Absolute Auto 0.8 K/mm3 (0.1-0.6); Monocytes Percent Auto 8.4 % (2.6-8.5); Neutrophils Absolute Auto 6.9 K/mm3 (1.3-6.7); Neutrophils Percent Auto 76.3 % (45.5-73.1); Platelet Count Result 220 k/mm3 (150-375); Red Blood Count 4.23 M/mm3 (4.2-5.4); Red Cell Distribution Width 13.6 % (11.5-14.5)
[2022-07-13 06:23] LABS: Lactic Acid Reflex 0.9 mmol/L (0.7-2.0)
[2022-07-13 06:28] LABS: Alanine Aminotransferase 14 U/L (6-35); Albumin Level 3.4 g/dL (3.5-5.1); Alkaline Phosphatase 117 U/L (38-126); Anion Gap 11 mmol/L (8-16); Aspartate Amino Transferase 17 U/L (14-36); Bilirubin,Total 0.6 mg/dL (0.2-1.3); Blood Urea Nitrogen 32 mg/dL (7-17); CRP 1.2 mg/dL (<1.0); Calcium 9.2 mg/dL (8.4-10.2); Carbon Dioxide 21 mmol/L (22-30); Chloride 109 mmol/L (98-107); Estimated CRCL calculation 21 ml/min; Estimated Glomerular Filt Rate 24; Glucose 193 mg/dL (65-110); Lactate Dehydrogenase 168 U/L (120-246); Magnesium 1.9 mg/dL (1.6-2.3); Potassium 4.1 mmol/L (3.4-5.0); Sodium 141 mmol/L (137-145)
[2022-07-13 06:43] LABS: Cholesterol 142 mg/dL (0-200); HDL Direct 28 mg/dL; Triglycerides 175 mg/dL (<150)
[2022-07-13 06:54] LABS: LDL Cholesterol Direct 82 mg/dL
[2022-07-13 07:16] LABS: Thyroid Stimulating Hormone Reflex 0.265 uIU/mL (0.465-4.68)
[2022-07-13 08:19] LABS: Glucose Point of Care 184 mg/dl (65-105)
--- NOTE | 2022-07-13 08:22 | PCPTNOTE ---
Attempted PT evaluation. Per RN, patient leaving floor for testing. Will Follow.
[2022-07-13] MEDS: ASPIRIN 81 MG ENTERIC TABLET PO (10:33)
[2022-07-13] MEDS: amLODIPine BESYLATE 5 MG TABLET 10 MG PO (10:33)
[2022-07-13] MEDS: ATORVASTATIN 40 MG TABLET PO (10:34)
[2022-07-13] MEDS: atenoloL 50 MG TABLET PO ×2 (10:34→20:43)
[2022-07-13] MEDS: DABIGATRAN ETEXILATE 75 MG CAPSULE PO (10:34)
[2022-07-13] MEDS: EMPAGLIFLOZIN 25 MG TABLET PO (10:36)
[2022-07-13] MEDS: MEMANTINE 10 MG TABLET PO (10:36)
[2022-07-13] MEDS: MUPIROCIN 2% OINT 22 GM TUBE 1 APPLIC TOPICAL (10:37)
--- NOTE | 2022-07-13 11:15 | PM.IMPN ---
Progress Note: A&P Assessment and Plan (1) CVA (cerebrovascular accident): Code(s): I63.9 - Cerebral infarction, unspecified Status: Inactive Assessment and Plan: -Head ct infarct in the right temporal occipital region, left thalamus, basal ganglia, and limb internal capsule -Head/neck CTA right temporal occipital region, left thalamus, basal ganglia, and limb internal capsule, old infarct in the left frontoparietal region, 0% stenosis of the intracranial carotid arteries -daily aspirin, continue atorvastatin, increase to 80 mg PO daily -neurology consult was greatly be appreciated. -PT OT evaluation would greatly be appreciated. -care coordination consult for placement for rehab, [address] [place] [address] rehab -unable to receive a MRI, pacemaker -echo pending -carotid Doppler <50% stenosis bilaterally -Currently on Pradaxa -NIH 13 (2) Lung nodules: Code(s): R91.8 - Other nonspecific abnormal finding of lung field Status: Acute Assessment and Plan: -CT of the chest abdomen pelvis shows primary metastatic disease -history of breast cancer -CT of the chest 1st to further investigate the lung nodules. -Consider biopsy -moderate pleural effusion on the right noted on the Head CTA -Consider oncology and pulmonology for support (3) Wound abscess: Status: Acute Assessment and Plan: -wound care consult. -Consider wound culture -history of breast cancer -CT of the chest showed an abscess -General surgery consult (4) DM2 (diabetes mellitus, type 2): Code(s): E11.9 - Type 2 diabetes mellitus without complications Status: Acute Assessment and Plan: -current glucose 193 -A1c 8.0 -Accu-Cheks AC and HS. -sliding scale insulin -Hypoglycemia protocol -Trend glucose -adjust therapy if indicated (5) Chronic kidney disease: Code(s): N18.9 - Chronic kidney disease, unspecified Status: Acute Assessment and Plan: -Current BUN/Cr is 32/2.00 -Unknown baseline however, appears to be around 2.00 -Urine studies ordered -hold nephrotoxic medicine -renal ultrasound showed no hydronephrosis or stenosis, increased renal cortical echogenicity which can be seen with medical renal disease -Stable (6) Dementia: Code(s): F03.90 - Unspecified dementia without behavioral disturbance Status: Acute Assessment and Plan: -patient has very poor short-term memory -continue with Namenda (7) Atrial fibrillation and flutter: Code(s): I48.91 - Unspecified atrial fibrillation; I48.92 - Unspecified atrial flutter Status: Acute Assessment and Plan: -pacemaker present -Rate is stable -Continue atenolol -Pradaxa on hold for possible need of thoracentesis -Continue aspirin (8) Hypothyroidism: Code(s): E03.9 - Hypothyroidism, unspecified Status: Acute Assessment and Plan: -Thyroid level 0.265 -continue with Synthroid (9) Hyperlipidemia: Code(s): E78.5 - Hyperlipidemia, unspecified Status: Acute Assessment and Plan: -lipid panel cholesterol 142, Triglycerides 175, LDL 82, HDL 28 -Currently on atorvastatin at 40mg PO daily, probably need to increase to 80mg -Diet changes (10) Hypertension: Code(s): I10 - Essential (primary) hypertension Status: Acute Assessment and Plan: -Current BP is 125/71 -continue with atenolol, irbesartan and amlodipine -hold Aldactone (11) Pleural effusion: Code(s): J90 - Pleural effusion, not elsewhere classified Status: Acute Assessment and Plan: -moderate right and small left pleural effusion noted on the Head/Neck CT -thoracentesis ordered -CT of the chest/abd/pel confirmed moderate right pleural effusion -BNP ordered -Could be from CHF -await further findings Time Spent With Patient Time with patient: Greater
[2022-07-13 11:37] LABS: Free T4 Free Thyroxine Reflex 2.39 ng/dL (0.78-2.19)
[2022-07-13 12:32] LABS: Glucose Point of Care 171 mg/dl (65-105)
--- NOTE | 2022-07-13 13:47 | WPDNEURCNPN ---
Assessment and Plan Assessment and plan (1) DM2 (diabetes mellitus, type 2): Code(s): E11.9 - Type 2 diabetes mellitus without complications Status: Acute (2) Chronic kidney disease: Code(s): N18.9 - Chronic kidney disease, unspecified Status: Acute (3) Dementia: Code(s): F03.90 - Unspecified dementia without behavioral disturbance Status: Acute (4) Atrial fibrillation and flutter: Code(s): I48.91 - Unspecified atrial fibrillation; I48.92 - Unspecified atrial flutter Status: Acute (5) Pacemaker: Code(s): Z95.0 - Presence of cardiac pacemaker Status: Acute (6) Stroke: Code(s): I63.9 - Cerebral infarction, unspecified Status: Acute Plan bihemispheric disease with flaccid right ani plegia will benefit from the rehab in addition to evaluation for other medical problems Consult date: 07/13/22 Time Seen: 13:00 Reason for consult: 82 years old lady has been admitted to the hospital through the emergency room with the ongoing history of 1. Dementia 2. Hypertension 3. Diabetes mellitus 4. Dyslipidemia 5. History of carcinoma of the breast 6. Atrial fibrillation for which patient is on Pradaxa 7. Status post right hip replacement and 8. Chronic kidney disease patient came to the emergency room for the complaints of right-sided weakness initial CT scan of the head in the emergency room revealed left frontoparietal infarct in addition to indeterminate age infarct the left basal ganglia thalamus and anterior limb of the internal capsule and right temporal region CTA of the head and neck was done in the emergency room which was without any significant stenosis she was found to have the 5 score of 10 with flaccid weakness of the right upper and right lower extremity in addition to dysarthria and dysphagia and was transferred to the [facility] for further care from the primary Hospital Emergency room in [facility], the routine blood studies are normal, initial CT scan as mentioned above revealed the infarct the right temporal occipital region in addition to the left thalamic left basal gangliar and left anterior limb capsule infarction as well addition to the old infarct in left frontoparietal region and extensive non specific white matter disease. Ultrasound of retroperitoneal space revealed no hydronephrosis or evidence of renal artery stenosis, treated Doppler studies less than 50% stenosis bilaterally, head neck CTA documented all the infarctions as mentioned above but no aneurysm or significant stenosis of the extra or intracranial arteries there was a pulmonary nodule of suspicion or nature and moderate size right left small pleural effusion Review of Systems Review of Systems: All systems reviewed & are unremarkable except as noted in HPI and below [facility] Past Medical History Medical History (Updated 07/13/22 @ 14:00 by Marvel Kraus MD) Atrial fibrillation and flutter Breast cancer Chronic kidney disease CVA (cerebrovascular accident) Dementia DM2 (diabetes mellitus, type 2) Hyperlipidemia Hypertension Hypothyroidism Pacemaker Surgical History Surgical History H/O mastectomy Right History of hip replacement right Family History Family History Father Heart disease Hypertension Mother Heart disease Hypertension Social History Social History (Updated 07/12/22 @ 20:33 by Flakita Mason NP) Social History: she is . She has 1 son and the [id number] is the durable power associate attorney for healthcare. The patient is a full code. She is retired. She has never smoked use any alcohol or marijuana or illicit drugs. Code status full code Smoking status: Never smoker Alcohol intake: never Substance use: never Spiritual care concerns: No Meds Home Medications and Allergies Home Medications Medicatio
[2022-07-13 15:33] LABS: Amylase 56 U/L (30-110)
[2022-07-13 15:34] LABS: Lactate Dehydrogenase 179 U/L (120-246); Triglycerides 165 mg/dL (<150)
[2022-07-13 15:43] LABS: NT Pro B Type Natriuretic Pept 3990 pg/mL (5-100)
--- NOTE | 2022-07-13 16:09 | PM.CNGS ---
Assessment and Plan Assessment and plan (1) Wound abscess: Status: Acute Assessment and Plan: The patient has a superficial superficial skin breakdown along the right lateral chest wall where her right upper arm has been densely or tightly pressed against her chest wall. It appears that this is in the general area of the lateral edge of her old mastectomy scar. There is no surrounding erythema the normal skin there is no significant tenderness or easily palpable underlying mass. There is some generalized thickening or scarring in the area. For now I would recommend continuing the topical antifungal and antibiotic ointments in the area covering the wound such that is padded between the chest and the skin of the arm and serial observations. (2) Pleural effusion: Code(s): J90 - Pleural effusion, not elsewhere classified Status: Acute (3) Stroke: Code(s): I63.9 - Cerebral infarction, unspecified Status: Acute Assessment and Plan: Age indeterminate. This is still being worked up. (4) Lung nodules: Code(s): R91.8 - Other nonspecific abnormal finding of lung field Status: Acute Assessment and Plan: These are new findings on today's CT scan. Unfortunately this could be metastatic liver lesions associated with her prior breast cancer. Agree with consideration for CT-guided biopsy if anticoagulation can be safely stopped and the family wishes to proceed. Should the biopsy reveal evidence of metastatic breast cancer 1 needs to consider whether not the thickening in the lateral portion of her right mastectomy scar may be also a recurrence. (5) DM2 (diabetes mellitus, type 2): Code(s): E11.9 - Type 2 diabetes mellitus without complications Status: Acute (6) Chronic kidney disease: Code(s): N18.9 - Chronic kidney disease, unspecified Status: Acute (7) Dementia: Code(s): F03.90 - Unspecified dementia without behavioral disturbance Status: Acute (8) Atrial fibrillation and flutter: Code(s): I48.91 - Unspecified atrial fibrillation; I48.92 - Unspecified atrial flutter Status: Acute (9) Pacemaker: Code(s): Z95.0 - Presence of cardiac pacemaker Status: Acute (10) Hypertension: Code(s): I10 - Essential (primary) hypertension Status: Acute History of Present Illness Consult details Consult date: 07/13/22 Reason for consult: other (Seroma versus abscess right chest wall) Requesting physician: Ortiz Prakash, HEALTHCARE ADMINISTRATOR-C Narrative: this patient is a pleasant but somewhat demented 82-year-old white female who was recently admitted to [place] with suspicion of a recent CVA. Today is CT scan of the abdomen chest and pelvis (CTA ) was ordered an incidentally a fluid collection was seen in the subcutaneous space on the right chest laterally. The radiologist read that this could be either seroma from previous surgery or possibly an abscess. The report states that it is both thin and thick walled. Patient's nurse reports that over that area there is a open wound that they had called the wound care nurses about. This is the side on which her stroke has affected her body and her right arm was tightly compressed against her right chest when I entered the room and we had to move it in order to see the area. The patient is alert and awake and tries to answer questions. She however could not remember how long ago she had her mastectomy or her breast cancer and also could not remember what treatment she had. She stated that she had completed treatment thus far she knew. She also stated that she had not had any specific problems with swelling in her right arm after her surgery. Nurses to run do not report any fever or other changes suggestive of infection for the patient at this time. Review of Systems Review of Systems: ROS unobtainable: Yes unobtainable due to mental status PMFSH Past Medical History Medical Histo
[2022-07-13 16:58] LABS: INR 1.2; Prothrombin Time 14.4 Seconds (11.1-14.7)
[2022-07-13 17:26] LABS: Glucose Point of Care 198 mg/dl (65-105)
[2022-07-13] MEDS: IRBESARTAN 150 MG TABLET 300 MG PO (20:43)
[2022-07-13 20:47] LABS: Glucose Point of Care 231 mg/dl (65-105)
[2022-07-14] VITALS (13 sets, daily range): BP systolic 107–131; BP diastolic 58–72; PULSE 59–97; RESP 15–17; TEMP 36.7–37.1; O2SAT 92–99
[2022-07-14 03:41] LABS: Creatinine Urine 80.4 mg/dL; Urea Random Urine 499 MG/DL
[2022-07-14 03:49] LABS: Sodium Urine Random 94 meq/L
[2022-07-14] MEDS: LEVOTHYROXINE SODIUM 25 MCG TABLET PO (05:40)
[2022-07-14] MEDS: LEVOTHYROXINE SODIUM 112 MCG TABLET PO (05:40)
[2022-07-14 05:54] LABS: Basophils Absolute Auto 0.1 K/mm3 (0.0-0.1); Basophils Percent Auto 0.6 % (0.2-1.2); Eosinophils Absolute Auto 0.3 K/mm3 (0-0.3); Eosinophils Percent Auto 2.8 % (0-4.4); Hematocrit 40.1 % (37.0-47.0); Hemoglobin 12.9 g/dL (12.0-15.0); Immature Granulocyte Absolute 0.16 K/mm3 (0.00-0.031); Immature Granulocyte Percent A 1.8 % (0-0.5); Lymphocytes Percent Auto 13.2 % (18.3-44.2); Mean Corpuscular HGB Conc 32.2 g/dl (32-36); Mean Corpuscular Hemoglobin 32.5 pg (26-34); Mean Platelet Volume 10.4 fl (7.4-10.4); Monocytes Absolute Auto 0.8 K/mm3 (0.1-0.6); Monocytes Percent Auto 8.3 % (2.6-8.5); Neutrophils Absolute Auto 6.7 K/mm3 (1.3-6.7); Neutrophils Percent Auto 73.3 % (45.5-73.1); Platelet Count Result 229 k/mm3 (150-375); Red Blood Count 3.97 M/mm3 (4.2-5.4); Red Cell Distribution Width 13.6 % (11.5-14.5); White Blood Count 9.1 K/mm3 (4.5-10.0)
[2022-07-14 06:09] LABS: Alanine Aminotransferase 13 U/L (6-35); Albumin Level 3.2 g/dL (3.5-5.1); Alkaline Phosphatase 94 U/L (38-126); Anion Gap 13 mmol/L (8-16); Aspartate Amino Transferase 17 U/L (14-36); Bilirubin,Total 0.5 mg/dL (0.2-1.3); Blood Urea Nitrogen 36 mg/dL (7-17); Calcium 8.5 mg/dL (8.4-10.2); Carbon Dioxide 21 mmol/L (22-30); Chloride 107 mmol/L (98-107); Estimated CRCL calculation 20 ml/min; Estimated Glomerular Filt Rate 22; Glucose 184 mg/dL (65-110); Magnesium 1.9 mg/dL (1.6-2.3); Sodium 141 mmol/L (137-145)
[2022-07-14] MEDS: amLODIPine BESYLATE 5 MG TABLET 10 MG PO (08:20)
[2022-07-14] MEDS: MEMANTINE 10 MG TABLET PO (08:21)
[2022-07-14] MEDS: ATORVASTATIN 40 MG TABLET 80 MG PO (08:21)
[2022-07-14] MEDS: ASPIRIN 81 MG ENTERIC TABLET PO (08:21)
[2022-07-14] MEDS: FUROSEMIDE INJ 40 MG/4 ML VIAL IV PUSH ×2 (08:21→17:38)
[2022-07-14] MEDS: atenoloL 50 MG TABLET PO ×2 (08:21→20:23)
[2022-07-14] MEDS: EMPAGLIFLOZIN 25 MG TABLET PO (08:21)
[2022-07-14 08:49] LABS: Glucose Point of Care 162 mg/dl (65-105)
[2022-07-14 11:45] LABS: Pleural fluid source Pleural fluid
--- NOTE | 2022-07-14 11:45 | PM.IMPN ---
Progress Note: A&P Assessment and Plan (1) CVA (cerebrovascular accident): Code(s): I63.9 - Cerebral infarction, unspecified Status: Inactive Assessment and Plan: -Head ct infarct in the right temporal occipital region, left thalamus, basal ganglia, and limb internal capsule -Head/neck CTA right temporal occipital region, left thalamus, basal ganglia, and limb internal capsule, old infarct in the left frontoparietal region, 0% stenosis of the intracranial carotid arteries -daily aspirin, continue atorvastatin, increase to 80 mg PO daily -neurology consult was greatly be appreciated. -PT OT evaluation would greatly be appreciated. -care coordination consult for placement for rehab, [address] [place] [address] rehab -unable to receive a MRI, pacemaker -echo pending -carotid Doppler <50% stenosis bilaterally -Currently on Pradaxa, which is on hold for procedures -NIH 13 (2) Lung nodules: Code(s): R91.8 - Other nonspecific abnormal finding of lung field Status: Acute Assessment and Plan: -CT of the chest abdomen pelvis shows primary metastatic disease -history of breast cancer -CT of the chest 1st to further investigate the lung nodules. -biopsy ordered however will have to wait for some of the labs from the thoracentsis -moderate pleural effusion on the right noted on the Head CTA -Consider oncology and pulmonology for support (3) Congestive heart failure: Code(s): I50.9 - Heart failure, unspecified Status: Acute Assessment and Plan: Chest CTA shows pleural effusion and mild pulmonary edema BNP 3990 Probably an acute exacerbation of chronic diastolic heart failure Echo pending Lasix 40mg IV BID for now Trend renal function as she already has CKD thoracentesis 650ml off daily weights Trend urine output Adjust therapy accordingly (4) Pleural effusion: Code(s): J90 - Pleural effusion, not elsewhere classified Status: Acute Assessment and Plan: -moderate right and small left pleural effusion noted on the Head/Neck CT -thoracentesis 650ml of of clear sheldon colored fluid -labs are pending -CT of the chest/abd/pel confirmed moderate right pleural effusion -BNP 3990 -Could be from CHF -await further findings (5) Wound abscess: Status: Acute Assessment and Plan: -wound care consult. -Consider wound culture -history of breast cancer -CT of the chest showed an abscess -General surgery consult -Does not appear to be big enough for intervention -might be related to metastatic disease (6) DM2 (diabetes mellitus, type 2): Code(s): E11.9 - Type 2 diabetes mellitus without complications Status: Acute Assessment and Plan: -current glucose 184 -A1c 8.0 -Accu-Cheks AC and HS. -sliding scale insulin -Hypoglycemia protocol -Trend glucose -adjust therapy if indicated (7) Chronic kidney disease: Code(s): N18.9 - Chronic kidney disease, unspecified Status: Acute Assessment and Plan: -Current BUN/Cr is 36/2.10 -Unknown baseline however, appears to be around 2.00 -Urine studies: Sodium 94, urea 499, creatinine 80.4 -FEUrea since patient has been on spironolactone, FEUrea is 36.2 suggesting intrinsic disease -hold nephrotoxic medicine -renal ultrasound showed no hydronephrosis or stenosis, increased renal cortical echogenicity which can be seen with medical renal disease -Stable (8) Dementia: Code(s): F03.90 - Unspecified dementia without behavioral disturbance Status: Acute Assessment and Plan: -patient has very poor short-term memory -continue with Namenda (9) Atrial fibrillation and flutter: Code(s): I48.91 - Unspecified atrial fibrillation; I48.92 - Unspecified atrial flutter Status: Acute Assessment and Plan: -pacemaker present -Rate is stable -Continue atenolol -Pradaxa on ho
[2022-07-14 11:46] LABS: Appearance Pleural Fluid Cloudy (Clear); Color Pleural Fluid Yellow (Colorless); Nucleated Cell Pleural Fluid 1485 /uL (0-1000)
[2022-07-14 11:47] LABS: RBC Pleural Fluid 2439 /uL (0-0)
[2022-07-14 11:48] LABS: Lymphocytes Pleural Fluid 60 %; Macrophages Pleural Fluid 3 %; Mesothelial Cells Pleural Flui 33 %; Neutrophils Pleural Fluid 4 % (0-25)
[2022-07-14 11:56] LABS: pH Pleural Fluid 7.428 (7.210-7.500)
[2022-07-14 12:17] LABS: Glucose Point of Care 168 mg/dl (65-105)
[2022-07-14] MEDS: MUPIROCIN 2% OINT 22 GM TUBE 1 APPLIC TOPICAL (12:17)
--- NOTE | 2022-07-14 13:50 | PM.PNGS ---
Progress Note: A&P Assessment and Plan (1) Wound abscess: Status: Acute Assessment and Plan: -wound care consult. - wound culture probably will not helped much since it is superficial not not does not appear to be severely infected -history of breast cancer -CT of the chest showed an abscess versus seroma related to her previous mastectomy however her mastectomy is in the distant past and I suspect that perhaps this was fibrotic thickened scar of the lateral portion of her right mastectomy scar. - Since her white count is normal and there is no fluctuance in the area I do not believe any surgical intervention is required. - One thing we have to keep in mind is possible chest wall recurrence of her previous right breast cancer whichmight be related to the probable metastatic disease noted on her chest CT which reflected right pleural effusion and pulmonary nodules on the right. (2) Lung nodules: Code(s): R91.8 - Other nonspecific abnormal finding of lung field Status: Acute Assessment and Plan: -CT of the chest abdomen pelvis shows possible metastatic disease (Right pleural effusion and pulmonary nodules on the right). -history of breast cancer -CT guided core or fine-needle biopsy ordered however will have to wait for some of the labs from the thoracentsis -moderate pleural effusion on the right noted on the the above CT and patient underwent ultrasound-guided thoracentesis on Saturday 07/14. Studies pending. -Consider oncology and pulmonology Consultation for support (3) Pleural effusion: Code(s): J90 - Pleural effusion, not elsewhere classified Status: Acute Assessment and Plan: -moderate right and small left pleural effusion noted on the Head/Neck CT -thoracentesis 650ml of of clear sheldon colored fluid -labs are pending -CT of the chest/abd/pel confirmed moderate right pleural effusion -BNP 3990 -Could be from CHF -await further findings (4) Dementia: Code(s): F03.90 - Unspecified dementia without behavioral disturbance Status: Acute Assessment and Plan: -patient has very poor short-term memory -continue with Namenda (5) Atrial fibrillation and flutter: Code(s): I48.91 - Unspecified atrial fibrillation; I48.92 - Unspecified atrial flutter Status: Acute Assessment and Plan: -pacemaker present -Continue atenolol -Pradaxa on hold for possible need of Right lung biopsy -Continue aspirin Subjective Subjective Date/Time Seen: 07/14/22 12:50 patient denies any changes in or any pain on the right lateral chest. She remembers that she had a mastectomy but cannot tell us what your was done. She remembers that she had both surgery and radiation treatments to the right chest. Review of Systems Review of Systems: ROS unobtainable: Yes unobtainable due to mental status Exam Chest: Breast/axilla inspection: abnormal inspection of the breast right lower outer scar ( Significant thickening of the lateral portion of her old mastectomy scar on the right lateral chest) Other: Careful evaluation at dressing change with patient's nurse this date reveals the open area described previously which is about 3 cm in length transversely and only about 0.5 cm in width vertically. This is superficial breakdown. There is no surrounding erythema no underlying palpable fluctuance. The lateral part of her right mastectomy scar is very thick and there were several deep crevices which juncture are difficult for the patient to keep clean. Dressing was reapplied by the nurse. Although this appears to be thickened scar related to her previous surgery and radiation recurrence of breast cancer in the chest wall in this area cannot be ruled out completely. Resp: Effort & Inspection: normal respiratory effort Objective Data Vital Signs Vital Signs: Vital Signs - 24 hr 07/13/22 16:00 07/13/22 20
[2022-07-14 17:24] LABS: Glucose Point of Care 257 mg/dl (65-105)
[2022-07-14] MEDS: INSULIN ASPART (*BKC) 100 UNITS/ML SUB-Q (17:37)
[2022-07-14] MEDS: IRBESARTAN 150 MG TABLET 300 MG PO (20:22)
[2022-07-14 21:29] LABS: Glucose Point of Care 274 mg/dl (65-105)
[2022-07-15] VITALS (9 sets, daily range): BP systolic 100–126; BP diastolic 54–60; PULSE 59–79; RESP 16–18; TEMP 36.6–36.9; O2SAT 97–98
[2022-07-15 05:29] LABS: Basophils Absolute Auto 0.1 K/mm3 (0.0-0.1); Basophils Percent Auto 0.5 % (0.2-1.2); Eosinophils Absolute Auto 0.2 K/mm3 (0-0.3); Eosinophils Percent Auto 1.7 % (0-4.4); Hematocrit 43.1 % (37.0-47.0); Immature Granulocyte Absolute 0.04 K/mm3 (0.00-0.031); Immature Granulocyte Percent A 0.4 % (0-0.5); Lymphocytes Absolute Auto 1.15 K/mm3 (0.9-3.2); Lymphocytes Percent Auto 10.7 % (18.3-44.2); Mean Corpuscular HGB Conc 32.5 g/dl (32-36); Mean Corpuscular Hemoglobin 32.4 pg (26-34); Mean Corpuscular Volume 99.8 fl (80-100); Mean Platelet Volume 10.2 fl (7.4-10.4); Monocytes Absolute Auto 0.9 K/mm3 (0.1-0.6); Monocytes Percent Auto 8.6 % (2.6-8.5); Neutrophils Absolute Auto 8.4 K/mm3 (1.3-6.7); Neutrophils Percent Auto 78.1 % (45.5-73.1); Platelet Count Result 235 k/mm3 (150-375); Red Blood Count 4.32 M/mm3 (4.2-5.4); Red Cell Distribution Width 13.5 % (11.5-14.5); White Blood Count 10.8 K/mm3 (4.5-10.0)
[2022-07-15 05:42] LABS: Alanine Aminotransferase 14 U/L (6-35); Albumin Level 3.6 g/dL (3.5-5.1); Alkaline Phosphatase 104 U/L (38-126); Anion Gap 17 mmol/L (8-16); Aspartate Amino Transferase 19 U/L (14-36); Bilirubin,Total 0.4 mg/dL (0.2-1.3); Blood Urea Nitrogen 46 mg/dL (7-17); Calcium 8.8 mg/dL (8.4-10.2); Carbon Dioxide 20 mmol/L (22-30); Chloride 103 mmol/L (98-107); Estimated CRCL calculation 18 ml/min; Estimated Glomerular Filt Rate 20; Glucose 207 mg/dL (65-110); Potassium 3.6 mmol/L (3.4-5.0); Sodium 140 mmol/L (137-145)
[2022-07-15] MEDS: LEVOTHYROXINE SODIUM 25 MCG TABLET PO (05:48)
[2022-07-15] MEDS: LEVOTHYROXINE SODIUM 112 MCG TABLET PO (05:48)
[2022-07-15 08:56] LABS: Glucose Point of Care 217 mg/dl (65-105)
[2022-07-15] MEDS: INSULIN ASPART (*BKC) 100 UNITS/ML SUB-Q ×3 (09:18→17:17)
[2022-07-15] MEDS: ASPIRIN 81 MG ENTERIC TABLET PO (09:21)
[2022-07-15] MEDS: EMPAGLIFLOZIN 25 MG TABLET PO (09:21)
[2022-07-15] MEDS: amLODIPine BESYLATE 5 MG TABLET 10 MG PO (09:21)
[2022-07-15] MEDS: ATORVASTATIN 40 MG TABLET 80 MG PO (09:21)
[2022-07-15] MEDS: MEMANTINE 10 MG TABLET PO (09:22)
[2022-07-15] MEDS: atenoloL 50 MG TABLET PO ×2 (09:25→21:14)
[2022-07-15] MEDS: FUROSEMIDE INJ 40 MG/4 ML VIAL IV PUSH (09:26)
[2022-07-15] MEDS: DABIGATRAN ETEXILATE 75 MG CAPSULE PO (09:26)
--- NOTE | 2022-07-15 09:45 | PM.IMPN ---
Progress Note: A&P Assessment and Plan (1) CVA (cerebrovascular accident): Code(s): I63.9 - Cerebral infarction, unspecified Status: Inactive Assessment and Plan: -Head ct infarct in the right temporal occipital region, left thalamus, basal ganglia, and limb internal capsule -Head/neck CTA right temporal occipital region, left thalamus, basal ganglia, and limb internal capsule, old infarct in the left frontoparietal region, 0% stenosis of the intracranial carotid arteries -daily aspirin, continue atorvastatin, increase to 80 mg PO daily -neurology consult was greatly be appreciated. -PT OT evaluation would greatly be appreciated. -care coordination consult for placement for rehab, [address] [place] [address] rehab -unable to receive a MRI, pacemaker -echo EF of 60-65% with abnormal diastolic dysfunction -carotid Doppler <50% stenosis bilaterally -Restart Pradaxa, since Biopsy cannot be performed at this time -Has been able to get into chair with Melissa Steady, can tolerate standing (2) Lung nodules: Code(s): R91.8 - Other nonspecific abnormal finding of lung field Status: Acute Assessment and Plan: -CT of the chest abdomen pelvis shows primary metastatic disease -history of breast cancer -CT of the chest 1st to further investigate the lung nodules. -biopsy ordered however will have to wait for some of the labs from the thoracentesis -moderate pleural effusion on the right noted on the Head CTA -Consider oncology and pulmonology for support (3) Congestive heart failure: Code(s): I50.9 - Heart failure, unspecified Status: Acute Assessment and Plan: Chest CTA shows pleural effusion and mild pulmonary edema BNP 3990 Probably an acute exacerbation of chronic diastolic heart failure Echo EF of 60-65% with abnormal diastolic dysfunction Lasix 40mg IV, changed to daily for now, with worsening renal function Trend renal function as she already has CKD thoracentesis 650ml off daily weights Trend urine output Adjust therapy accordingly (4) Pleural effusion: Code(s): J90 - Pleural effusion, not elsewhere classified Status: Acute Assessment and Plan: -moderate right and small left pleural effusion noted on the Head/Neck CT -thoracentesis 650ml of of clear sheldon colored fluid -labs pH 7.428, RBC 2439, Nuc cells 1485, seems stable -Gram stain: many WBC -CT of the chest/abd/pel confirmed moderate right pleural effusion -BNP 3990 -Could be from CHF -await further findings (5) Wound abscess: Status: Acute Assessment and Plan: -wound care consult. -Consider wound culture -history of breast cancer -CT of the chest showed an abscess -General surgery consult -Does not appear to be big enough for intervention -might be related to metastatic disease (6) DM2 (diabetes mellitus, type 2): Code(s): E11.9 - Type 2 diabetes mellitus without complications Status: Acute Assessment and Plan: -current glucose 207 -A1c 8.0 -Accu-Cheks AC and HS. -sliding scale insulin -Hypoglycemia protocol -Trend glucose -adjust therapy if indicated (7) Chronic kidney disease: Code(s): N18.9 - Chronic kidney disease, unspecified Status: Acute Assessment and Plan: -Current BUN/Cr is 46/2.30, continues to trend up -Unknown baseline however, appears to be around 2.00 -Urine studies: Sodium 94, urea 499, creatinine 80.4 -FEUrea since patient has been on spironolactone, FEUrea is 36.2 suggesting intrinsic disease -Decrease lasix to Daily for now -renal ultrasound showed no hydronephrosis or stenosis, increased renal cortical echogenicity which can be seen with medical renal disease -Continue to trend labs and adjust therapy accordingly (8) Dementia: Code(s): F03.90 - Unspecified dementia without behavioral disturbance Status: Acute Assessment an
[2022-07-15] MEDS: MUPIROCIN 2% OINT 22 GM TUBE 1 APPLIC TOPICAL (10:28)
[2022-07-15 12:25] LABS: Glucose Point of Care 307 mg/dl (65-105)
--- NOTE | 2022-07-15 13:06 | PM.PNGS ---
Progress Note: A&P Assessment and Plan (1) Wound abscess: Status: Acute Assessment and Plan: -wound care consult. - wound culture probably will not helped much since it is superficial not not does not appear to be severely infected -history of breast cancer -CT of the chest showed an abscess versus seroma related to her previous mastectomy however her mastectomy is in the distant past and I suspect that perhaps this was fibrotic thickened scar of the lateral portion of her right mastectomy scar. - Since her white count is normal and there is no fluctuance in the area I do not believe any surgical intervention is required. - One thing we have to keep in mind is possible chest wall recurrence of her previous right breast cancer whichmight be related to the probable metastatic disease noted on her chest CT which reflected a right pleural effusion and pulmonary nodules on the right. (2) Lung nodules: Code(s): R91.8 - Other nonspecific abnormal finding of lung field Status: Acute Assessment and Plan: -CT of the chest abdomen pelvis shows possible metastatic disease (Right pleural effusion and pulmonary nodules on the right). -history of breast cancer -CT guided core or fine-needle biopsy ordered however will have to wait for some of the labs from the thoracentsis -moderate pleural effusion on the right noted on the the above CT and patient underwent ultrasound-guided thoracentesis on Saturday 07/14. Studies pending. -Consider oncology and pulmonology Consultation (3) Pleural effusion: Code(s): J90 - Pleural effusion, not elsewhere classified Status: Acute Assessment and Plan: -moderate right and small left pleural effusion noted on the Head/Neck CT -thoracentesis 650ml of of clear sheldon colored fluid -labs are pending -CT of the chest/abd/pel confirmed moderate right pleural effusion -BNP 3990 -Could be from CHF -await further findings (4) Dementia: Code(s): F03.90 - Unspecified dementia without behavioral disturbance Status: Acute Assessment and Plan: -patient has very poor short-term memory -continue with Namenda (5) Atrial fibrillation and flutter: Code(s): I48.91 - Unspecified atrial fibrillation; I48.92 - Unspecified atrial flutter Status: Acute Assessment and Plan: -pacemaker present -Continue atenolol -Continue aspirin Subjective Subjective Date/Time Seen: 07/15/22 12:06 Patient reports: no new complaints Interval history: she believes she remembers that her breast cancer on the right was actually as long as 20 years ago when she was in her 60s. Review of Systems Review of Systems: ROS unobtainable: Yes unobtainable due to mental status Exam Chest: Breast/axilla inspection: abnormal inspection of the breast right lower outer scar ( Significant thickening of the lateral portion of her old mastectomy scar on the right lateral chest) Other: Careful evaluation at dressing change this date reveals the open area described previously which is about 3 cm in length transversely and only about 0.5 cm in width vertically. This is superficial breakdown. There is no surrounding erythema no underlying palpable fluctuance. The lateral part of her right mastectomy scar is very thick and there were several deep crevices which juncture are difficult for the patient to keep clean. Dressing was reapplied by the nurse. Although this appears to be thickened scar related to her previous surgery and radiation, a recurrence of breast cancer in the chest wall in this area cannot be ruled out completely. Resp: Effort & Inspection: normal respiratory effort Objective Data Vital Signs Vital Signs: Vital Signs - 24 hr 07/14/22 14:00 07/14/22 16:00 07/14/22 16:00 Temperature 36.9 C 37.1 C Pulse Rate 63 60 66 Respiratory Rate 16 16 Blood Pressure 107/63 128/72 Pulse Oximetry 92 95 Oxygen Delivery 07/14/22
[2022-07-15 17:10] LABS: Glucose Point of Care 215 mg/dl (65-105)
[2022-07-15] MEDS: IRBESARTAN 150 MG TABLET 300 MG PO (21:13)
[2022-07-15 21:29] LABS: Glucose Point of Care 357 mg/dl (65-105)
[2022-07-16] VITALS (7 sets, daily range): BP systolic 100–114; BP diastolic 54–67; PULSE 60–74; RESP 14–16; TEMP 36.4–37.8; O2SAT 94–97
[2022-07-16] MEDS: LEVOTHYROXINE SODIUM 25 MCG TABLET PO (06:09)
[2022-07-16] MEDS: LEVOTHYROXINE SODIUM 112 MCG TABLET PO (06:09)
[2022-07-16 06:26] LABS: Basophils Percent Auto 0.4 % (0.2-1.2); Eosinophils Absolute Auto 0.2 K/mm3 (0-0.3); Eosinophils Percent Auto 1.6 % (0-4.4); Hematocrit 43.3 % (37.0-47.0); Hemoglobin 14.3 g/dL (12.0-15.0); Immature Granulocyte Absolute 0.08 K/mm3 (0.00-0.031); Immature Granulocyte Percent A 0.8 % (0-0.5); Lymphocytes Absolute Auto 0.79 K/mm3 (0.9-3.2); Lymphocytes Percent Auto 8.1 % (18.3-44.2); Mean Corpuscular Hemoglobin 32.7 pg (26-34); Mean Corpuscular Volume 99.1 fl (80-100); Mean Platelet Volume 10.4 fl (7.4-10.4); Monocytes Absolute Auto 1.1 K/mm3 (0.1-0.6); Monocytes Percent Auto 11.6 % (2.6-8.5); Neutrophils Absolute Auto 7.5 K/mm3 (1.3-6.7); Neutrophils Percent Auto 77.5 % (45.5-73.1); Platelet Count Result 216 k/mm3 (150-375); Red Blood Count 4.37 M/mm3 (4.2-5.4); Red Cell Distribution Width 13.6 % (11.5-14.5); White Blood Count 9.7 K/mm3 (4.5-10.0)
[2022-07-16 06:41] LABS: Alanine Aminotransferase 18 U/L (6-35); Albumin Level 3.5 g/dL (3.5-5.1); Alkaline Phosphatase 115 U/L (38-126); Anion Gap 12 mmol/L (8-16); Aspartate Amino Transferase 25 U/L (14-36); Bilirubin,Total 0.4 mg/dL (0.2-1.3); Blood Urea Nitrogen 52 mg/dL (7-17); Calcium 8.7 mg/dL (8.4-10.2); Carbon Dioxide 24 mmol/L (22-30); Chloride 100 mmol/L (98-107); Estimated CRCL calculation 15 ml/min; Estimated Glomerular Filt Rate 17; Glucose 225 mg/dL (65-110); Magnesium 1.8 mg/dL (1.6-2.3); Sodium 136 mmol/L (137-145)
--- NOTE | 2022-07-16 07:53 | PM.IMPN ---
Progress Note: A&P Assessment and Plan (1) CVA (cerebrovascular accident): Code(s): I63.9 - Cerebral infarction, unspecified Status: Chronic Assessment and Plan: -Head ct infarct in the right temporal occipital region, left thalamus, basal ganglia, and limb internal capsule -Head/neck CTA right temporal occipital region, left thalamus, basal ganglia, and limb internal capsule, old infarct in the left frontoparietal region, 0% stenosis of the intracranial carotid arteries -echo EF of 60-65% with abnormal diastolic dysfunction -carotid Doppler <50% stenosis bilaterally -unable to obtain MRI due to pacemaker. -neurology consult was greatly be appreciated. -Continue aspirin, lipitor and BP management. -Continue PT OT evaluation would greatly be appreciated. Has been able to get into chair with [facility], can tolerate standing -care coordination consult for placement for rehab, 1st choice [facility] -Hold pradaxa for possible biopsy if pleuritic fluid is non-diagnostic. (2) Lung nodules: Code(s): R91.8 - Other nonspecific abnormal finding of lung field Status: Acute Assessment and Plan: -CT of the chest abdomen pelvis shows primary metastatic disease -history of breast cancer -CT of the chest 1st to further investigate the lung nodules. -biopsy ordered however will have to wait for some of the labs from the thoracentesis -moderate pleural effusion on the right noted on the Head CTA -Consult Oncology for assistance with management. Appreciate recommendations. -Pulmonology consulted. Can assist with bronchoscopy and biopsy of pleuritic fluid is non-diagnostic. (3) Congestive heart failure: Code(s): I50.9 - Heart failure, unspecified Status: Acute Assessment and Plan: Chest CTA shows pleural effusion and mild pulmonary edema BNP 3990 Probably an acute exacerbation of chronic diastolic heart failure Echo EF of 60-65% with abnormal diastolic dysfunction was diuresing with furosemide, however, worsening renal function noted. Stop ARB and furosemide. Trend renal function as she already has CKD thoracentesis 650ml off daily weights Trend urine output Adjust therapy accordingly (4) Pleural effusion: Code(s): J90 - Pleural effusion, not elsewhere classified Status: Acute Assessment and Plan: -moderate right and small left pleural effusion noted on the Head/Neck CT -thoracentesis 650ml of of clear sheldon colored fluid -labs pH 7.428, RBC 2439, Nuc cells 1485, seems stable -Gram stain: many WBC -CT of the chest/abd/pel confirmed moderate right pleural effusion -BNP 3990 -await pleural fluid analysis. (5) Wound abscess: Status: Acute Assessment and Plan: -wound care consult. -Consider wound culture -history of breast cancer -CT of the chest showed an abscess -General surgery consult -Does not appear to be big enough for intervention -might be related to metastatic disease (6) DM2 (diabetes mellitus, type 2): Code(s): E11.9 - Type 2 diabetes mellitus without complications Status: Chronic Assessment and Plan: -current glucose 207 -A1c 8.0 -Accu-Cheks AC and HS. -sliding scale insulin -Hypoglycemia protocol -Trend glucose -adjust therapy if indicated -add lantus 10 units daily. Hold Jardiance d/t worsening renal function. (7) Chronic kidney disease: Code(s): N18.9 - Chronic kidney disease, unspecified Status: Acute Assessment and Plan: Acute worsening of chronic disease. - Current BUN/Cr is 52/2.7, continues to trend up -Unknown baseline. She may have seen a shellfish shucker in the past. -Urine studies: Sodium 94, urea 499, creatinine 80.4 -FEUrea since patient has been on spironolactone, FEUrea is 36.2 suggesting intrinsic disease -renal ultrasound showed no hydronephrosis or stenosis, increased renal cortical echogenicity which can be seen with medica
[2022-07-16 08:29] LABS: Glucose Point of Care 258 mg/dl (65-105)
[2022-07-16 08:39] LABS: Glucose Point of Care 235 mg/dl (65-105)
[2022-07-16] MEDS: INSULIN ASPART (*BKC) 100 UNITS/ML SUB-Q ×3 (08:39→17:29)
[2022-07-16] MEDS: amLODIPine BESYLATE 5 MG TABLET 10 MG PO (08:42)
[2022-07-16] MEDS: atenoloL 50 MG TABLET PO (08:42)
[2022-07-16] MEDS: MEMANTINE 10 MG TABLET PO (08:43)
[2022-07-16] MEDS: ASPIRIN 81 MG ENTERIC TABLET PO (08:44)
[2022-07-16] MEDS: ATORVASTATIN 40 MG TABLET 80 MG PO (08:44)
[2022-07-16] MEDS: INSULIN GLARGINE (*BKC) 100 UNITS/ML 10 UNITS SUB-Q (08:44)
[2022-07-16] MEDS: MUPIROCIN 2% OINT 22 GM TUBE 1 APPLIC TOPICAL (08:45)
[2022-07-16] MEDS: DABIGATRAN ETEXILATE 75 MG CAPSULE PO (09:50)
[2022-07-16] MEDS: SODIUM CHLORIDE 0.9% IV 500 ML 70 ML IV CONT (09:58)
[2022-07-16 12:11] LABS: Glucose Point of Care 290 mg/dl (65-105)
--- NOTE | 2022-07-16 13:16 | PM.PNGS ---
Progress Note: A&P Assessment and Plan (1) Wound abscess: Status: Acute Assessment and Plan: Continue local wound care with mupirocin and antifungal cream to the open wounds on the right lateral chest wall. This is covered with Mepilex transfer to help protect the wound. Wound appears stable with no fluctuance or purulent drainage. Consider recurrence of her previous right breast cancer which could be related to the probable metastatic disease noted on the chest CT. She is s/p thoracentesis with cytology and cultures pending. (2) Lung nodules: Code(s): R91.8 - Other nonspecific abnormal finding of lung field Status: Acute Assessment and Plan: CT of the chest abdomen pelvis shows possible metastatic disease (Right pleural effusion and pulmonary nodules on the right). Hx of breast cancer s/p right mastectomy. S/p thoracentesis on 07/14. Cytology and cultures pending. Oncology and pulmonology consulted. (3) Pleural effusion: Code(s): J90 - Pleural effusion, not elsewhere classified Status: Acute (4) Dementia: Code(s): F03.90 - Unspecified dementia without behavioral disturbance Status: Acute (5) Atrial fibrillation and flutter: Code(s): I48.91 - Unspecified atrial fibrillation; I48.92 - Unspecified atrial flutter Status: Acute Assessment and Plan: Pacemaker present. Continue home medications per primary service. (6) Acute kidney injury superimposed on CKD: Code(s): N17.9 - Acute kidney failure, unspecified; N18.9 - Chronic kidney disease, unspecified Status: Acute Assessment and Plan: Creatinine slowly trending up. Nephrology has been consulted today. Plan I have discussed the patient's case and plan of care with Dr. Bo. Subjective Subjective Date/Time Seen: 07/16/22 13:16 Patient reports: no new complaints Review of Systems Review of Systems: ROS unobtainable: Yes unobtainable due to mental status (dementia) Exam Const: General: comfortable, no acute distress and alert Orientation/consciousness: oriented to person, oriented to place, oriented to time and confusion (dementia) Chest: Other: Right arm sling and dressing removed. Mastectomy scar appears normal other than some thickened firmness at the lateral edge of the scar and a small superficial open wound with a pink healthy wound bed. No purulent drainage or surrounding erythema or warmth to suggest cellulitis. Dressing and sling reapplied. Objective Data Vital Signs Vital Signs: Vital Signs - 24 hr 07/15/22 15:10 07/15/22 21:14 07/15/22 20:00 Temperature 98 F Pulse Rate 59 L 63 63 Respiratory Rate 16 Blood Pressure 100/54 L Pulse Oximetry 98 Oxygen Delivery 07/15/22 20:00 07/16/22 00:00 07/16/22 06:00 Temperature 100.0 F H Pulse Rate 60 60 Respiratory Rate 16 Blood Pressure 114/67 Pulse Oximetry 94 Oxygen Delivery Room Air 07/15/22 23:05 07/16/22 08:42 07/16/22 08:35 Temperature 98.5 F Pulse Rate 60 60 Respiratory Rate 18 Blood Pressure 126/60 Pulse Oximetry 97 Oxygen Delivery Room Air 07/16/22 11:46 Temperature 98.0 F Pulse Rate 64 Respiratory Rate 14 Blood Pressure 104/56 L Pulse Oximetry 94 Oxygen Delivery Intake/Output Intake/Output: Intake & Output 07/13/22 07/14/22 07/15/22 07/16/22 23:59 23:59 23:59 23:59 Intake Total 690 1080 980 440 Output Total 700 1400 400 Balance -10 -320 980 40 Meds/Results Medications: Active Medications Generic Name Dose Route Start Last Admin Trade Name Freq PRN Reason Stop Dose Admin Amlodipine Besylate 10 mg 07/13/22 09:00 07/16/22 08:42 Amlodipine Besylate 5 Mg Tablet PO 10 mg DAILY [facility] Administration Aspirin 81 mg 07/13/22 09:00 07/16/22 08:44 Aspirin 81 Mg Enteric Tablet PO 81 mg QAM [facility] Administration Atenolol 50 mg 07/13/22 09:00 07/16/22 08:42 Atenolol 50 Mg Tablet PO 50 mg Q12HR [facility] Ad
--- NOTE | 2022-07-16 17:05 | PM.CNNEP ---
Assessment and Plan Assessment and plan (1) Acute kidney injury superimposed on CKD: Code(s): N17.9 - Acute kidney failure, unspecified; N18.9 - Chronic kidney disease, unspecified Status: Acute Assessment and Plan: Patient has chronic kidney disease. This is not well documented. We do not know what her baseline creatinine is. Will try to get some records from the other physicians. She did have a creatinine around 10 years ago here which was normal. She does have chronic hypertension and also has diabetes and vascular disease and so these could probably be causing some of this chronic kidney disease. She has acute kidney injury as well. Creatinine started to 2.3 then fell and now is gradually rising. She has been on diuretics and so this could be playing a role. Her diuretic doses already been decreased. She has not received any contrast her other medicines that might be nephrotoxic. Her urine shows some red cells and white cell so infection might have been possible however her urine culture is negative and she is off antibiotics now. So this is less likely. Obstruction is always a possibility of. We will check a renal sonogram. The patient's fractional excretion of urea shows a non pre renal picture. Allergic interstitial nephritis would be unlikely because she is not on any new medications. Glomerulonephritis is possible but will see what happens with the above. At this point will get another creatinine tomorrow. (2) Stroke: Code(s): I63.9 - Cerebral infarction, unspecified Status: Acute Assessment and Plan: Patient has right-sided hemiparesis. (3) Pleural effusion: Code(s): J90 - Pleural effusion, not elsewhere classified Status: Acute Assessment and Plan: Patient has pleural effusion, fluid in the breast tissues, and edema. The former 2 could be from metastatic breast cancer. Patient has some edema. Will check venous Dopplers. (4) DM2 (diabetes mellitus, type 2): Code(s): E11.9 - Type 2 diabetes mellitus without complications Status: Acute Assessment and Plan: This is being followed by the hospitalist (5) Dementia: Code(s): F03.90 - Unspecified dementia without behavioral disturbance Status: Acute Assessment and Plan: She is on memantine for this (6) Hypertension: Code(s): I10 - Essential (primary) hypertension Status: Acute Assessment and Plan: Blood pressure is well controlled (7) Hyperlipidemia: Code(s): E78.5 - Hyperlipidemia, unspecified Status: Acute Assessment and Plan: She is on atorvastatin for this (8) Hypothyroidism: Code(s): E03.9 - Hypothyroidism, unspecified Status: Acute Assessment and Plan: She is on supplements History of Present Illness Reason for Consult Consult date: 07/16/22 Chief Complaint Chief complaint: CVA History of Present Illness Narrative: Clemencia is a very pleasant 82-year-old lady who has multiple medical problems including hypertension, hyperlipidemia, diabetes, senile dementia of the Alzheimer's type, hypothyroidism, Atrial fibrillation and flutter, Breast cancer, Chronic kidney disease, CVA (cerebrovascular accident), Pacemaker. [facility] in the right leg and right arm. CT showed stroke. She has a pacemaker so MRI was not able to be done. She is already on Pradaxa so tPA was not given. She was sent [facility] for further evaluation. Neurology saw the patient in continued anticoagulants. Rehabilitation has been started. The patient does have chronic kidney disease. It is unclear what the baseline creatinine is. She had a creatinine 2.3 on admission and this dropped to 1.9 and from then and has gradually risen to the current value of 2.7. Has pleural effusion and also edema so she has been given diuretics: Furosemide 40mg IV twice a day. The patient had an echocardio
[2022-07-16 17:07] LABS: Glucose Point of Care 254 mg/dl (65-105)
--- NOTE | 2022-07-16 19:29 | PDONCCN ---
HPI - Date of Consult Date/Time: 07/16/22 19:29 Requesting Physician: aTriq Adams MD Primary Care Provider: Traiq Briggs, - Consult Narrative Reason for consult: Likely metastatic breast cancer Narrative: Clemencia Sands is a 82 year old female with history of right-sided breast cancer diagnosed almost 10 years ago status post mastectomy and adjuvant radiation therapy and chemotherapy treatment. Patient is a poor historian. According to the son she also received hormonal therapy for 5 years duration. Looks like her treatment were done at [facility]. Patient came into the hospital transferred from [facility] with right upper and lower extremity weakness. Patient has a history of atrial fibrillation and currently on treatment with Pradaxa. CT chest abdomen and pelvis showed pulmonary nodules consistent with metastatic disease with moderate size right pleural effusion and thick fluid collection in the area of prior hours mastectomy site. Patient had right-sided thoracentesis performed on July 13 with removal of 650 mL of clear fluid. Pathology is pending. She denies any excessive shortness of breath. Denies any weight loss. Denies any other new long bones are lymphadenopathy. She has some open area of skin in the right mastectomy site with some drainage. Review of Systems - Review of Systems All systems reviewed & are unremarkable except as noted in HPI and bel - Neurologic Reports system reviewed and no additional complaints, except as documented, Reports hearing normal, Reports confusion (dementia), Reports sensory deficit PMFSH Medical History: Medical History (Last Reviewed 07/16/22 @ 17:14 by Douglas Shea MD) Atrial fibrillation and flutter Breast cancer Chronic kidney disease CVA (cerebrovascular accident) Dementia DM2 (diabetes mellitus, type 2) Hyperlipidemia Hypertension Hypothyroidism Pacemaker Surgical History: Surgical History (Last Reviewed 07/16/22 @ 17:14 by Douglas Shea MD) H/O mastectomy Right History of hip replacement right Family History: Family History (Last Reviewed 07/16/22 @ 17:14 by Douglas Shea MD) Father Heart disease Hypertension Mother Heart disease Hypertension - Social History Social History: Social History (Last Reviewed 07/16/22 @ 17:14 by Douglas Shea MD) Alcohol Use: Alcohol intake: never Substance Use: Substance use: never Others: Spiritual care concerns: No Smoking Status: Smoking status: Never smoker Exam - Vital Signs Vital Signs - 24 hr 07/15/22 21:14 07/15/22 20:00 07/15/22 20:00 Temperature Pulse Rate 63 63 Respiratory Rate Blood Pressure Pulse Oximetry Oxygen Delivery Room Air 07/16/22 00:00 07/16/22 06:00 07/15/22 23:05 Temperature 37.8 C H 36.9 C Pulse Rate 60 60 60 Respiratory Rate 16 18 Blood Pressure 114/67 126/60 Pulse Oximetry 94 97 Oxygen Delivery 07/16/22 08:42 07/16/22 08:35 07/16/22 11:46 Temperature 36.7 C Pulse Rate 60 64 Respiratory Rate 14 Blood Pressure 104/56 L Pulse Oximetry 94 Oxygen Delivery Room Air 07/16/22 16:00 Temperature 36.4 C Pulse Rate 60 Respiratory Rate 16 Blood Pressure 102/58 L Pulse Oximetry 97 Oxygen Delivery - Exam HEENT: EOMI, PERRLA, mucous membranes moist and pink Neck: supple. No: JVD Lungs: clear to auscultation, decrease breath sounds Heart: no murmurs, gallops, or rubs, regular rhythm, regular rate Abdomen: abdomen soft, non-distended, normal bowel sounds Extremities: normal pulses Integumentary: no abnormalities Neurological: normal speech, hemiplegia (Right mastectomy site showed area of erythema and open wound with mild drainage.) - Lab Results Laboratory Last Values WBC 9.7 K/mm3 (4.5-10.0) 07/16/22 06:00 RBC 4.37 M/mm3 (4.2-5.4) 07/16/22 06:00 Hgb 14.3 g/dL (12.0-15.0) 07/16/22 06:00
[2022-07-16] MEDS: HEPARIN SODIUM 5,000 UNITS/ML VIAL 5000 UNITS SUB-Q (20:51)
[2022-07-16 21:19] LABS: Glucose Point of Care 279 mg/dl (65-105)
[2022-07-17] MEDS: LEVOTHYROXINE SODIUM 112 MCG TABLET PO (05:37)
[2022-07-17 06:00] LABS: Albumin Level 3.4 g/dL (3.5-5.1); Anion Gap 14 mmol/L (8-16); Blood Urea Nitrogen 51 mg/dL (7-17); Calcium 8.3 mg/dL (8.4-10.2); Carbon Dioxide 19 mmol/L (22-30); Chloride 99 mmol/L (98-107); Estimated CRCL calculation 15 ml/min; Estimated Glomerular Filt Rate 18; Glucose 166 mg/dL (65-110); Phosphorus 4.7 mg/dL (2.5-4.5); Sodium 132 mmol/L (137-145)
[2022-07-17 06:31] VITALS: BP 119/61; PULSE 60; RESP 12; TEMP 36.8; O2SAT 90
--- NOTE | 2022-07-17 08:31 | PM.PNNEP ---
Progress Note: A&P Assessment and Plan (1) Acute kidney injury superimposed on CKD: Code(s): N17.9 - Acute kidney failure, unspecified; N18.9 - Chronic kidney disease, unspecified Status: Acute Assessment and Plan: Patient has chronic kidney disease. This is not well documented. We do not know what her baseline creatinine is. She does have chronic hypertension and also has diabetes and vascular disease and so these could probably be causing some of this chronic kidney disease. She has acute kidney injury. CT abd shows no obstruction. Urine study showed non pre renal picture. Her diuretics have been held. Her creatinine is a little bit better today. (2) Stroke: Code(s): I63.9 - Cerebral infarction, unspecified Status: Acute Assessment and Plan: Patient has right-sided hemiparesis. (3) Pleural effusion: Code(s): J90 - Pleural effusion, not elsewhere classified Status: Acute Assessment and Plan: Patient has pleural effusion, fluid in the breast tissues, and edema. The former 2 could be from metastatic breast cancer. Patient has some edema. Venous Dopplers are pending (4) DM2 (diabetes mellitus, type 2): Code(s): E11.9 - Type 2 diabetes mellitus without complications Status: Chronic Assessment and Plan: This is being followed by the hospitalist (5) Dementia: Code(s): F03.90 - Unspecified dementia without behavioral disturbance Status: Chronic Assessment and Plan: She is on memantine for this (6) Hypertension: Code(s): I10 - Essential (primary) hypertension Status: Chronic Assessment and Plan: Blood pressure is well controlled (7) Hyperlipidemia: Code(s): E78.5 - Hyperlipidemia, unspecified Status: Chronic Assessment and Plan: She is on atorvastatin for this (8) Hypothyroidism: Code(s): E03.9 - Hypothyroidism, unspecified Status: Acute Assessment and Plan: She is on supplements Subjective Date/time seen: 07/17/22 08:31 Interval history: Patient feels about the same today. she slept well last night. Her appetite is just okay. Review of Systems Cardiovascular: Cardiovascular: Reports no additional cardiovascular complaints Respiratory: Respiratory: Reports no additional respiratory complaints Gastrointestinal: Gastrointestinal: Reports no additional gastrointestinal complaints Genitourinary: Genitourinary: Reports no additional female genitourinary complaints Exam Narrative: WDWN in NAD skin no rash head ncat lungs clear cor reg no rub abd BS+ nontender and soft ext no edema. Objective Data Vital Signs Vital Signs: Vital Signs - 24 hr 07/16/22 08:42 07/16/22 08:35 07/16/22 11:46 Temperature 36.7 C Pulse Rate 60 64 Respiratory Rate 14 Blood Pressure 104/56 L Pulse Oximetry 94 Oxygen Delivery Room Air 07/16/22 16:00 07/16/22 21:09 07/16/22 21:24 Temperature 36.4 C 36.6 C Pulse Rate 60 74 61 Respiratory Rate 16 16 Blood Pressure 102/58 L 100/60 103/54 L Pulse Oximetry 97 97 Oxygen Delivery 07/17/22 06:31 Temperature 36.8 C Pulse Rate 60 Respiratory Rate 12 Blood Pressure 119/61 Pulse Oximetry 90 Oxygen Delivery Intake/Output Intake/Output: Intake & Output 07/14/22 07/15/22 07/16/22 07/17/22 23:59 23:59 23:59 23:59 Intake Total 4841 823 6859 150 Output Total 1400 500 Balance -837 595 1487 150 Meds/Results Medications: Active Medications Generic Name Dose Route Start Last Admin Trade Name Freq PRN Reason Stop Dose Admin Amlodipine Besylate 10 mg 07/13/22 09:00 07/16/22 08:42 Amlodipine Besylate 5 Mg Tablet PO 10 mg DAILY [facility] Administration Aspirin 81 mg 07/13/22 09:00 07/16/22 08:44 Aspirin 81 Mg Enteric Tablet PO 81 mg QAM [facility] Administration Atenolol 50 mg 07/13/22 09:00 07/16/22 21:12 Atenolol 50 Mg Tablet PO
[2022-07-17 08:44] LABS: Glucose Point of Care 185 mg/dl (65-105)
[2022-07-17 09:13] LABS: Creatine Kinase 26 U/L (30-135)
[2022-07-17] MEDS: HEPARIN SODIUM 5,000 UNITS/ML VIAL 5000 UNITS SUB-Q ×2 (09:43→20:57)
[2022-07-17] MEDS: ATORVASTATIN 40 MG TABLET 80 MG PO (09:43)
[2022-07-17] MEDS: ASPIRIN 81 MG ENTERIC TABLET PO (09:45)
[2022-07-17] MEDS: MEMANTINE 10 MG TABLET PO (09:45)
[2022-07-17] MEDS: MUPIROCIN 2% OINT 22 GM TUBE 1 APPLIC TOPICAL (09:46)
[2022-07-17 09:52] VITALS: PULSE 59
--- NOTE | 2022-07-17 09:53 | PM.IMPN ---
Progress Note: A&P Assessment and Plan (1) CVA (cerebrovascular accident): Qualifiers: CVA mechanism: unspecified Qualified Code(s): I63.9 - Cerebral infarction, unspecified Code(s): I63.9 - Cerebral infarction, unspecified Status: Chronic Assessment and Plan: -Head ct infarct in the right temporal occipital region, left thalamus, basal ganglia, and limb internal capsule -Head/neck CTA right temporal occipital region, left thalamus, basal ganglia, and limb internal capsule, old infarct in the left frontoparietal region, 0% stenosis of the intracranial carotid arteries -echo EF of 60-65% with abnormal diastolic dysfunction -carotid Doppler <50% stenosis bilaterally -unable to obtain MRI due to pacemaker. -neurology consult was greatly be appreciated. -Continue aspirin, lipitor and BP management. -Continue PT OT evaluation would greatly be appreciated. Has been able to get into chair with Melissa Steady, can tolerate standing -care coordination consult for placement for rehab, 1st choice [facility] -Hold pradaxa for possible biopsy if pleuritic fluid is non-diagnostic. (2) Lung nodules: Code(s): R91.8 - Other nonspecific abnormal finding of lung field Status: Acute Assessment and Plan: -CT of the chest abdomen pelvis shows primary metastatic disease -history of breast cancer -CT of the chest 1st to further investigate the lung nodules. -biopsy ordered however will have to wait for some of the labs from the thoracentesis -moderate pleural effusion on the right noted on the Head CTA -Consult Oncology for assistance with management. Appreciate recommendations. -Pulmonology consulted. Can assist with bronchoscopy and biopsy of pleuritic fluid is non-diagnostic. (3) Congestive heart failure: Qualifiers: Heart failure type: diastolic Heart failure chronicity: acute on chronic Qualified Code(s): I50.33 - Acute on chronic diastolic (congestive) heart failure Code(s): I50.9 - Heart failure, unspecified Status: Acute Assessment and Plan: Chest CTA shows pleural effusion and mild pulmonary edema -BNP 3990 -Probably an acute exacerbation of chronic diastolic heart failure -Echo EF of 60-65% with abnormal diastolic dysfunction -worsening renal function with diuresing -07/16/22 Stopped ARB and furosemide. -daily weights -Trend urine output -Adjust therapy accordingly (4) Pleural effusion: Code(s): J90 - Pleural effusion, not elsewhere classified Status: Acute Assessment and Plan: -moderate right and small left pleural effusion noted on the Head/Neck CT -thoracentesis 650ml of of clear sheldon colored fluid -labs pH 7.428, RBC 2439, Nuc cells 1485, seems stable -Gram stain: many WBC -CT of the chest/abd/pel confirmed moderate right pleural effusion -BNP 3990 -gram stain negative, AFB negative, cytology pending. (5) Wound abscess: Status: Acute Assessment and Plan: -wound care consult. -Consider wound culture -history of breast cancer -CT of the chest showed an abscess -General surgery consult -might be related to metastatic disease (6) DM2 (diabetes mellitus, type 2): Qualifiers: Diabetes mellitus long term care phlebotomist insulin use: without nursing home use Code(s): E11.9 - Type 2 diabetes mellitus without complications Status: Chronic Assessment and Plan: -current glucose 166 to 225 -A1c 8.0 -Accu-Cheks AC and HS. -sliding scale insulin -Hypoglycemia protocol -Trend glucose -adjust therapy if indicated -Continue lantus 10 units daily. Hold Jardiance d/t worsening renal function. (7) Chronic kidney disease: Qualifiers: Chronic kidney disease stage: unspecified stage Qualified Code(s): N18.9 - Chronic kidney disease, unspecified Code(s): N18.9 - Chronic kidney disease, unspecified Status: Acute Assessment and Plan: Acute worsening
[2022-07-17 09:54] VITALS: BP 99/61
[2022-07-17] MEDS: INSULIN GLARGINE (*BKC) 100 UNITS/ML 10 UNITS SUB-Q (10:17)
[2022-07-17] MEDS: polyethylene glycoL 3350 17 GM POWD.PACK PO (10:17)
--- NOTE | 2022-07-17 12:11 | PM.PNGS ---
Progress Note: A&P Assessment and Plan (1) Wound abscess: Status: Acute Assessment and Plan: Continue local wound care with mupirocin and antifungal cream to the open wounds on the right lateral chest wall. This is covered with Mepilex transfer to help protect the wound. Wound appears stable with no fluctuance or purulent drainage. Consider recurrence of her previous right breast cancer which could be related to the probable metastatic disease noted on the chest CT. She is s/p thoracentesis with cytology and cultures pending. Okay with surgery to continue current dressings and go to rehab if that is the next step. (2) Lung nodules: Code(s): R91.8 - Other nonspecific abnormal finding of lung field Status: Acute Assessment and Plan: CT of the chest abdomen pelvis shows possible metastatic disease (Right pleural effusion and pulmonary nodules on the right). Hx of breast cancer s/p right mastectomy. S/p thoracentesis on 07/14. Cytology and cultures pending. Oncology and pulmonology consulted. (3) Pleural effusion: Code(s): J90 - Pleural effusion, not elsewhere classified Status: Acute (4) Dementia: Code(s): F03.90 - Unspecified dementia without behavioral disturbance Status: Chronic (5) Atrial fibrillation and flutter: Code(s): I48.91 - Unspecified atrial fibrillation; I48.92 - Unspecified atrial flutter Status: Acute Assessment and Plan: Pacemaker present. Continue home medications per primary service. (6) Acute kidney injury superimposed on CKD: Code(s): N17.9 - Acute kidney failure, unspecified; N18.9 - Chronic kidney disease, unspecified Status: Acute Assessment and Plan: Creatinine slowly trending up. Nephrology has been consulted. Subjective Subjective Date/Time Seen: 07/17/22 08:11 Patient reports: no new complaints Interval history: Patient is sleeping when I entered the room with her nurse. Review of Systems Review of Systems: ROS unobtainable: Yes unobtainable due to mental status Exam Const: General: comfortable, no acute distress and alert Orientation/consciousness: oriented to person and confusion (dementia) Chest: Other: Right arm sling and dressing removed. Mastectomy scar appears normal other than some thickened firmness at the lateral edge of the scar and two small superficial open wounds with a pink healthy wound bed. These appear to be healing in as they are smaller than when I saw them on on her initial consultation last Saturday. No purulent drainage or surrounding erythema or warmth to suggest cellulitis. Dressing and sling reapplied by her nurse Suma who examined the patient with me.. Objective Data Vital Signs Vital Signs: Vital Signs - 24 hr 07/16/22 16:00 07/16/22 21:09 07/16/22 21:24 Temperature 36.4 C 36.6 C Pulse Rate 60 74 61 Respiratory Rate 16 16 Blood Pressure 102/58 L 100/60 103/54 L Pulse Oximetry 97 97 07/17/22 06:31 07/17/22 09:52 07/17/22 09:54 Temperature 36.8 C Pulse Rate 60 59 L Respiratory Rate 12 Blood Pressure 119/61 99/61 L Pulse Oximetry 90 Intake/Output Intake/Output: Intake & Output 07/14/22 07/15/22 07/16/22 07/17/22 23:59 23:59 23:59 23:59 Intake Total 5660 407 7542 390 Output Total 1400 500 Balance -839 137 0837 390 Meds/Results Medications: Active Medications Generic Name Dose Route Start Last Admin Trade Name Freq PRN Reason Stop Dose Admin Amlodipine Besylate 10 mg 07/13/22 09:00 07/17/22 09:52 Amlodipine Besylate 5 Mg Tablet PO Not Given DAILY HOWARD Aspirin 81 mg 07/13/22 09:00 07/17/22 09:45 Aspirin 81 Mg Enteric Tablet PO 81 mg QAM HOWARD Administration Atenolol 50 mg 07/13/22 09:00 07/17/22 09:52 Atenolol 50 Mg Tablet PO Not Given Q12HR HOWARD Atorvastatin Calcium 80 mg 07/14/22 09:00 07/17/22 09:43 Atorvastatin 40 Mg Tablet PO 80 mg DAILY HOWARD Administration Bisa
[2022-07-17 12:22] LABS: Glucose Point of Care 225 mg/dl (65-105)
[2022-07-17] MEDS: INSULIN ASPART (*BKC) 100 UNITS/ML SUB-Q (12:41)
[2022-07-17 13:58] VITALS: BP 104/55; PULSE 63; RESP 20; TEMP 36.3; O2SAT 97
[2022-07-17 17:22] LABS: Glucose Point of Care 155 mg/dl (65-105)
[2022-07-17 20:26] LABS: Osmolality, Urine 579 mOsm/kg (50-1200)
[2022-07-17 21:08] LABS: Glucose Point of Care 169 mg/dl (65-105)
[2022-07-17 22:31] VITALS: PULSE 62
[2022-07-17] MEDS: atenoloL 50 MG TABLET PO (22:31)
[2022-07-17 23:30] VITALS: BP 107/61; PULSE 61; RESP 16; TEMP 36.8; O2SAT 96
[2022-07-18 05:31] VITALS: BP 114/63; PULSE 60; RESP 16; TEMP 36.9; O2SAT 96
[2022-07-18 05:42] LABS: Glucose Pleural Fluid 174 mg/dL; LDH Pleural Fluid 710 U/L; Total Protein Pleural Fluid 3.2 g/dL
[2022-07-18] MEDS: LEVOTHYROXINE SODIUM 112 MCG TABLET PO (05:43)
[2022-07-18 05:44] LABS: Albumin Level 3.3 g/dL (3.5-5.1); Anion Gap 13 mmol/L (8-16); Blood Urea Nitrogen 51 mg/dL (7-17); Calcium 8.3 mg/dL (8.4-10.2); Carbon Dioxide 23 mmol/L (22-30); Chloride 100 mmol/L (98-107); Estimated CRCL calculation 16 ml/min; Estimated Glomerular Filt Rate 20; Glucose 146 mg/dL (65-110); Phosphorus 4.8 mg/dL (2.5-4.5); Potassium 3.9 mmol/L (3.4-5.0); Sodium 136 mmol/L (137-145)
--- NOTE | 2022-07-18 08:18 | PM.PNNEP ---
Progress Note: A&P Assessment and Plan (1) Acute kidney injury superimposed on CKD: Code(s): N17.9 - Acute kidney failure, unspecified; N18.9 - Chronic kidney disease, unspecified Status: Acute Assessment and Plan: Patient has chronic kidney disease. This is not well documented. We do not know what her baseline creatinine is. She does have chronic hypertension and also has diabetes and vascular disease and so these could probably be causing some of this chronic kidney disease. She has acute kidney injury. CT abd shows no obstruction. Urine study showed non pre renal picture. renal sonogram is negative. the creatinine is better at 2.3, she has edema and effusions so will need some diuretics skilled nursing to minimize this so will start her on oral diuretics. (2) Stroke: Code(s): I63.9 - Cerebral infarction, unspecified Status: Acute Assessment and Plan: Patient has right-sided hemiparesis. (3) Pleural effusion: Code(s): J90 - Pleural effusion, not elsewhere classified Status: Acute Assessment and Plan: Patient has pleural effusion, fluid in the breast tissues, and edema. echo shows good LV systolic function, a little diastolic dysfunction but probably not enough to explain this. UA shows neg protein so probably not from the kidneys. Liver looks okay on CT and enzymes okay This could be from metastatic breast cancer. Patient has some edema. Venous Dopplers are negative. restart diuretics as well. (4) DM2 (diabetes mellitus, type 2): Qualifiers: Diabetes mellitus marine oil terminal superintendent insulin use: without marine oil terminal superintendent use Code(s): E11.9 - Type 2 diabetes mellitus without complications Status: Chronic Assessment and Plan: This is being followed by the hospitalist (5) Dementia: Qualifiers: Dementia type: Alzheimer's Code(s): F03.90 - Unspecified dementia without behavioral disturbance Status: Chronic Assessment and Plan: She is on memantine for this (6) Hypertension: Qualifiers: Hypertension type: primary hypertension Qualified Code(s): I10 - Essential (primary) hypertension Code(s): I10 - Essential (primary) hypertension Status: Chronic Assessment and Plan: Blood pressure is well controlled (7) Hyperlipidemia: Qualifiers: Hyperlipidemia type: mixed hyperlipidemia Qualified Code(s): E78.2 - Mixed hyperlipidemia Code(s): E78.5 - Hyperlipidemia, unspecified Status: Chronic Assessment and Plan: She is on atorvastatin for this (8) Hypothyroidism: Qualifiers: Hypothyroidism type: acquired Qualified Code(s): E03.9 - Hypothyroidism, unspecified Code(s): E03.9 - Hypothyroidism, unspecified Status: Acute Assessment and Plan: She is on supplements Subjective Date/time seen: 07/18/22 08:18 Interval history: Patient feels about the same today. eating pretty well. no cp or sob Exam Narrative: WDWN in NAD skin no rash or sq nodules head ncat lungs clear cor reg no rub or gallop abd BS+ nontender and soft ext no edema. Objective Data Vital Signs Vital Signs: Vital Signs - 24 hr 07/17/22 09:52 07/17/22 09:54 07/17/22 13:58 Temperature 36.3 C L Pulse Rate 59 L 63 Respiratory Rate 20 Blood Pressure 99/61 L 104/55 L Pulse Oximetry 97 Oxygen Delivery 07/17/22 10:00 07/17/22 22:31 07/17/22 23:30 Temperature 36.8 C Pulse Rate 62 61 Respiratory Rate 16 Blood Pressure 107/61 Pulse Oximetry 96 Oxygen Delivery Room Air 07/18/22 05:31 Temperature 36.9 C Pulse Rate 60 Respiratory Rate 16 Blood Pressure 114/63 Pulse Oximetry 96 Oxygen Delivery Intake/Output Intake/Output: Intake & Output 07/15/22 07/16/22 07/17/22 07/18/22 23:59 23:59 23:59 23:59 Intake Total 980 1770 1100 400 Output Total 500 Balance 980 1270 1100 400
[2022-07-18 08:48] LABS: Glucose Point of Care 166 mg/dl (65-105)
[2022-07-18 08:58] VITALS: BP 110/62; PULSE 64; RESP 18; TEMP 36.5; O2SAT 95
[2022-07-18 09:03] VITALS: PULSE 64
[2022-07-18] MEDS: HEPARIN SODIUM 5,000 UNITS/ML VIAL 5000 UNITS SUB-Q (09:03)
[2022-07-18] MEDS: atenoloL 50 MG TABLET PO (09:03)
[2022-07-18] MEDS: ASPIRIN 81 MG ENTERIC TABLET PO (09:03)
[2022-07-18] MEDS: MEMANTINE 10 MG TABLET PO (09:03)
[2022-07-18] MEDS: amLODIPine BESYLATE 5 MG TABLET 10 MG PO (09:03)
[2022-07-18] MEDS: MUPIROCIN 2% OINT 22 GM TUBE 1 APPLIC TOPICAL (09:04)
[2022-07-18] MEDS: SERTRALINE HCL 50 MG TABLET PO (09:04)
[2022-07-18] MEDS: FUROSEMIDE 40 MG TABLET PO (09:04)
[2022-07-18] MEDS: polyethylene glycoL 3350 17 GM POWD.PACK PO (09:04)
[2022-07-18] MEDS: ATORVASTATIN 40 MG TABLET 80 MG PO (09:05)
[2022-07-18] MEDS: INSULIN GLARGINE (*BKC) 100 UNITS/ML 10 UNITS SUB-Q (09:05)
--- NOTE | 2022-07-18 09:30 | PM.DS ---
DS: Admitting Diagnosis Discharge Date 07/18/22 0930 Admitting Diagnosis new onset CVA/ Acute on chronic kidney disease DS: Discharge Diagnosis Discharge Diagnosis (1) CVA (cerebrovascular accident): Qualifiers: CVA mechanism: unspecified Qualified Code(s): I63.9 - Cerebral infarction, unspecified Code(s): I63.9 - Cerebral infarction, unspecified Status: Chronic Assessment and Plan: -Head ct infarct in the right temporal occipital region, left thalamus, basal ganglia, and limb internal capsule -Head/neck CTA right temporal occipital region, left thalamus, basal ganglia, and limb internal capsule, old infarct in the left frontoparietal region, 0% stenosis of the intracranial carotid arteries -echo EF of 60-65% with abnormal diastolic dysfunction -carotid Doppler <50% stenosis bilaterally -unable to obtain MRI due to pacemaker. -neurology consult was greatly be appreciated. -Continue aspirin, lipitor and BP management. -Continue PT OT evaluation would greatly be appreciated. Has been able to get into chair with Melissa Steady, can tolerate standing -[facility] accepted -Hold pradaxa for possible biopsy if pleuritic fluid is non-diagnostic. (2) Lung nodules: Code(s): R91.8 - Other nonspecific abnormal finding of lung field Status: Acute Assessment and Plan: -CT of the chest abdomen pelvis shows primary metastatic disease -history of breast cancer -CT of the chest 1st to further investigate the lung nodules. -biopsy can be done outpatient, as pathology is not back -moderate pleural effusion on the right noted on the Head CTA -Consult Oncology for assistance with management. Appreciate recommendations. -Pulmonology consulted. Can assist with bronchoscopy and biopsy of pleuritic fluid is non-diagnostic. (3) Congestive heart failure: Qualifiers: Heart failure chronicity: acute on chronic Heart failure type: diastolic Qualified Code(s): I50.33 - Acute on chronic diastolic (congestive) heart failure Code(s): I50.9 - Heart failure, unspecified Status: Acute Assessment and Plan: Chest CTA shows pleural effusion and mild pulmonary edema -BNP 3990 -Probably an acute exacerbation of chronic diastolic heart failure -Echo EF of 60-65% with abnormal diastolic dysfunction -worsening renal function with diuresing -07/16/22 Stopped ARB and furosemide. -daily weights -Trend urine output -Adjust therapy accordingly (4) Pleural effusion: Code(s): J90 - Pleural effusion, not elsewhere classified Status: Acute Assessment and Plan: -moderate right and small left pleural effusion noted on the Head/Neck CT -thoracentesis 650ml of of clear sheldon colored fluid -labs pH 7.428, RBC 2439, Nuc cells 1485, seems stable -Gram stain: many WBC -CT of the chest/abd/pel confirmed moderate right pleural effusion -BNP 3990 -gram stain negative, AFB negative, cytology pending. (5) Wound abscess: Status: Acute Assessment and Plan: -wound care consult. -Consider wound culture -history of breast cancer -CT of the chest showed an abscess -General surgery consult -might be related to metastatic disease (6) DM2 (diabetes mellitus, type 2): Qualifiers: Diabetes mellitus long term care pharmacist insulin use: without long term care pharmacist use Code(s): E11.9 - Type 2 diabetes mellitus without complications Status: Chronic Assessment and Plan: -current glucose 146 -A1c 8.0 -Accu-Cheks AC and HS. -sliding scale insulin -Hypoglycemia protocol -Trend glucose -adjust therapy if indicated -Continue lantus 10 units daily. Hold Jardiance d/t worsening renal function. (7) Dementia: Qualifiers: Dementia type: Alzheimer's Code(s): F03.90 - Unspecified dementia without behavioral disturbance Status: Chronic Assessment and Plan: -patient has
[2022-07-18 11:59] LABS: Glucose Point of Care 240 mg/dl (65-105)
[2022-07-18] MEDS: INSULIN ASPART (*BKC) 100 UNITS/ML SUB-Q (12:20)
--- NOTE | 2022-07-18 13:23 | PC.NURSE ---
Spoke with Dr. Canales regarding patient discharging. Patient okay to discharge from his standpoint. Would like for patient to call for follow-up appointment in one week and will do biopsy outpatient as well.
--- NOTE | 2022-07-18 14:02 | PC.NURSE ---
Spoke with Dr. Shea about patient's lab results from primary care and about discharge. Dr. Shea okay with patient discharging and would like patient to call for follow-up appointment after rehab.
[2022-07-18 14:12] VITALS: BP 106/57; PULSE 64; RESP 16; TEMP 36.6; O2SAT 95
[2022-07-18 17:05] LABS: Glucose Point of Care 183 mg/dl (65-105)
[2022-07-18 17:58] VITALS: BP 99/55; PULSE 60; RESP 16; O2SAT 97
[2022-07-18 20:07] LABS: Amylase, Pleural Fluid 31 U/L
[2022-07-19 22:42] LABS: Albumin Pleural Fluid 2.1 g/dL
[2022-07-20 05:55] LABS: CA 15-3 94 U/mL (<32)
== END 2022-07-18 18:03 | DRG 64 ==
PROVIDERS: Internal Medicine; Internal Medicine Hematology & Oncology; Internal Medicine Nephrology; Nurse Practitioner; Admitting Provider Family Medicine; PCP Internal Medicine; Visit Provider Nurse Practitioner
DX: I63.9 Cerebral infarction, unspecified (principal); I50.33 Acute on chronic diastolic (congestive) heart failure; G81.01 Flaccid hemiplegia affecting right dominant side; I48.20 Chronic atrial fibrillation, unspecified; I48.92 Unspecified atrial flutter; L02.213 Cutaneous abscess of chest wall; N17.9 Acute kidney failure, unspecified; C78.00 Secondary malignant neoplasm of unspecified lung; I12.9 Hypertensive chronic kidney disease with stage 1 through stage 4 chronic kidney disease, or unspecified chronic kidney disease; N18.9 Chronic kidney disease, unspecified; E11.22 Type 2 diabetes mellitus with diabetic chronic kidney disease; E78.5 Hyperlipidemia, unspecified; E03.9 Hypothyroidism, unspecified; R47.1 Dysarthria and anarthria; R13.10 Dysphagia, unspecified; R29.710 NIHSS score 10; R91.8 Other nonspecific abnormal finding of lung field; R45.89 Other symptoms and signs involving emotional state; F03.90 Unspecified dementia, unspecified severity, without behavioral disturbance, psychotic disturbance, mood disturbance, and anxiety; Z96.641 Presence of right artificial hip joint; Z85.3 Personal history of malignant neoplasm of breast; Z95.0 Presence of cardiac pacemaker; Z79.01 Long term (current) use of anticoagulants
CPT/HCPCS: 32555; 36415; 71250; 74176; 76775; 80048; 80053; 80061; 80069; 81001; 82042; 82150; 82550; 82570; 82945; 82948; 83036; 83605; 83615; 83735; 83880; 83935; 83986; 84100; 84155; 84157; 84300; 84311; 84439; 84443; 84478; 84540; 85025; 85610; 86140; 86300; 87015; 87070; 87075; 87086; 87088; 87102; 87116; 87205; 87206; 88108; 88305; 89051; 93005; 93306; 93880; 93970; 93976; 96375; 97110; 97162; 97166; 97530; 97535; A9270; G0378; G0379; J1644; J1815; J1940; J7040

== ENCOUNTER 2022-11-13 16:05 | Outpatient (NON) | payer MEDICARE, SELFPAY ==
[2022-11-13 16:49] LABS: Basophils Absolute Auto 0.04 K/mm3 (0.00-0.10); Basophils Percent Auto 0.4 % (0.0-1.0); Eosinophils Absolute Auto 0.28 K/mm3 (0.02-0.50); Eosinophils Percent Auto 2.9 % (1.0-6.0); Hematocrit 40.9 % (35.0-42.0); Hemoglobin 12.4 g/dL (11.7-13.8); Immature Granulocyte Absolute 0.03 K/mm3 (0.00-0.00); Immature Granulocyte Percent A 0.3 % (0.0-0.0); Lymphocytes Absolute Auto 1.26 K/mm3 (1.10-4.50); Lymphocytes Percent Auto 12.9 % (18.0-42.0); Mean Corpuscular HGB Conc 30.3 g/dL (32.0-36.0); Mean Corpuscular Hemoglobin 32.3 pg (27.0-31.0); Mean Corpuscular Volume 106.5 fL (78.0-102.0); Mean Platelet Volume 10.6 fl (9.2-11.8); Monocytes Absolute Auto 0.75 K/mm3 (0.10-0.90); Monocytes Percent Auto 7.7 % (2.0-11.0); Neutrophils Absolute Auto 7.4 K/mm3 (1.7-7.2); Neutrophils Percent Auto 75.8 % (50.0-70.0); Platelet Count Result 255 K/mm3 (150-420); Red Blood Count 3.84 M/mm3 (4.20-5.40); Red Cell Distribution Width 14.7 % (11.6-14.4); White Blood Count 9.8 K/mm3 (4.8-10.8)
[2022-11-13 17:01] LABS: Anion Gap 8 mmol/L (8-16); Blood Urea Nitrogen 32 mg/dL (7-18); Calcium 8.6 mg/dL (8.5-10.1); Carbon Dioxide 25 mmol/L (21-32); Chloride 106 mmol/L (98-108); Estimated Glomerular Filt Rate 29; Glucose 162 mg/dL (70-99); Osmolality Calculated 298 mOsm/kg (285-295); Potassium 3.8 mmol/L (3.5-5.1); Sodium 139 mmol/L (136-145)
[2022-11-13 23:01] LABS: Hemoglobin A1C 7.1 % (<5.7)
[2022-11-13 23:13] LABS: Thyroid Stimulating Hormone 1.59 uIU/mL (0.36-3.74)
[2022-11-14 02:32] LABS: Add Urine Microscopic? YES; Appearance Urine Clear (Clear); Bilirubin Urine Negative (Negative); Blood Urine Negative (Negative); Color Urine Yellow (Yellow); Glucose Urine UA 2+ (Negative); Ketones Urine Negative (Negative); Leukocyte Esterase Ur Trace LEU/UL (Negative); Nitrate Urine Negative (Negative); Protein Urine Negative (Negative); Specific Grav Ur 1.025 (1.010-1.020); Urobilinogen Urine 0.2 mg/dL (0.2-1.0); pH Urine 5.5 (5.0-8.0)
[2022-11-14 02:41] LABS: Bacteria Urine 2+ /hpf; RBC Urine 0-2 /hpf (0-2); Squamous Epithelial Cell Urine Many /hpf (Few); WBC Urine 0-3 /hpf (0-3)
== END 2022-11-13 16:06 | disposition home or self-care (01) ==
LOC: CHSLAB 16:08
PROVIDERS: Visit Provider Family Medicine
DX: R41.82 Altered mental status, unspecified (principal); E11.9 Type 2 diabetes mellitus without complications
CPT/HCPCS: 36415; 80048; 81001; 83036; 84443; 85025